=== PATIENT | male | born 1940 | race Caucasian/White ===

== ENCOUNTER 2023-11-13 14:03 | Outpatient (RCR) | payer OTHER, SELFPAY | END 2023-12-06 10:06 | disposition home or self-care (01) | LOC: MM 14:03 | PROVIDERS: PCP Internal Medicine; Visit Provider Internal Medicine | DX: Z51.81 Encounter for therapeutic drug level monitoring (principal); Z79.01 Long term (current) use of anticoagulants; I48.0 Paroxysmal atrial fibrillation | CPT/HCPCS: 85610; G0463 ==

== ENCOUNTER 2023-12-09 01:35 | Outpatient (RCR) | payer OTHER, SELFPAY | END 2024-01-06 23:42 | disposition home or self-care (01) | LOC: MM 01:35 | PROVIDERS: PCP Internal Medicine; Visit Provider Internal Medicine | DX: Z51.81 Encounter for therapeutic drug level monitoring (principal); Z79.01 Long term (current) use of anticoagulants; I48.0 Paroxysmal atrial fibrillation | CPT/HCPCS: 85610; G0463 ==

== ENCOUNTER 2024-01-07 02:40 | Outpatient (RCR) | payer OTHER, SELFPAY | END 2024-02-06 23:40 | disposition home or self-care (01) | LOC: MM 02:40 | PROVIDERS: PCP Internal Medicine; Visit Provider Internal Medicine | DX: Z51.81 Encounter for therapeutic drug level monitoring (principal); Z79.01 Long term (current) use of anticoagulants; I48.0 Paroxysmal atrial fibrillation | CPT/HCPCS: 85610; G0463 ==

== ENCOUNTER 2024-02-07 12:50 | Outpatient (RCR) | payer OTHER, SELFPAY | END 2024-03-07 23:59 | disposition home or self-care (01) | LOC: MM 12:50 | PROVIDERS: PCP Internal Medicine; Visit Provider Internal Medicine | DX: Z51.81 Encounter for therapeutic drug level monitoring (principal); Z79.01 Long term (current) use of anticoagulants; I48.0 Paroxysmal atrial fibrillation | CPT/HCPCS: 85610; G0463 ==

== ENCOUNTER 2024-03-09 05:14 | Outpatient (RCR) | payer OTHER, SELFPAY | END 2024-04-07 09:19 | disposition home or self-care (01) | LOC: MM 05:14 | PROVIDERS: PCP Internal Medicine; Visit Provider Internal Medicine | DX: Z51.81 Encounter for therapeutic drug level monitoring (principal); Z79.01 Long term (current) use of anticoagulants; I48.0 Paroxysmal atrial fibrillation | CPT/HCPCS: 85610; G0463 ==

== ENCOUNTER 2024-04-09 01:07 | Outpatient (RCR) | payer OTHER, SELFPAY | END 2024-05-08 14:37 | disposition home or self-care (01) | LOC: MM 01:07 | PROVIDERS: PCP Internal Medicine; Visit Provider Internal Medicine | DX: Z51.81 Encounter for therapeutic drug level monitoring (principal); Z79.01 Long term (current) use of anticoagulants; I48.0 Paroxysmal atrial fibrillation | CPT/HCPCS: 85610; G0463 ==

== ENCOUNTER 2024-05-11 00:41 | Outpatient (RCR) | payer OTHER, SELFPAY | END 2024-06-05 10:26 | disposition home or self-care (01) | LOC: MM 00:41 | PROVIDERS: PCP Internal Medicine; Visit Provider Internal Medicine | DX: Z51.81 Encounter for therapeutic drug level monitoring (principal); Z79.01 Long term (current) use of anticoagulants; I48.0 Paroxysmal atrial fibrillation | CPT/HCPCS: 85610; G0463 ==

== ENCOUNTER 2024-06-06 07:11 | Outpatient (RCR) | payer OTHER, SELFPAY | END 2024-07-03 10:04 | disposition home or self-care (01) | LOC: MM 07:11 | PROVIDERS: PCP Internal Medicine; Visit Provider Internal Medicine | DX: Z51.81 Encounter for therapeutic drug level monitoring (principal); Z79.01 Long term (current) use of anticoagulants; I48.0 Paroxysmal atrial fibrillation ==

== ENCOUNTER 2024-07-07 05:25 | Outpatient (RCR) | payer OTHER, SELFPAY | END 2024-08-05 15:37 | disposition home or self-care (01) | LOC: MM 05:25 | PROVIDERS: PCP Internal Medicine; Visit Provider Internal Medicine | DX: Z51.81 Encounter for therapeutic drug level monitoring (principal); Z79.01 Long term (current) use of anticoagulants; I48.91 Unspecified atrial fibrillation | CPT/HCPCS: 85610; G0463 ==

== ENCOUNTER 2024-08-06 04:46 | Outpatient (RCR) | payer OTHER, SELFPAY | END 2024-09-04 15:46 | disposition home or self-care (01) | LOC: MM 04:46 | PROVIDERS: PCP Internal Medicine; Visit Provider Internal Medicine | DX: Z51.81 Encounter for therapeutic drug level monitoring (principal); Z79.01 Long term (current) use of anticoagulants; I48.0 Paroxysmal atrial fibrillation | CPT/HCPCS: 85610; G0463 ==

== ENCOUNTER 2024-09-06 08:15 | Outpatient (RCR) | payer OTHER, SELFPAY | END 2024-10-01 15:01 | disposition home or self-care (01) | LOC: MM 08:15 | PROVIDERS: PCP Internal Medicine; Visit Provider Internal Medicine | DX: Z51.81 Encounter for therapeutic drug level monitoring (principal); Z79.01 Long term (current) use of anticoagulants; I48.91 Unspecified atrial fibrillation | CPT/HCPCS: 85610; G0463 ==

== ENCOUNTER 2024-10-06 02:31 | Outpatient (RCR) | payer OTHER, SELFPAY | END 2024-11-05 16:57 | disposition home or self-care (01) | LOC: MM 02:31 | PROVIDERS: PCP Internal Medicine; Visit Provider Internal Medicine | DX: Z51.81 Encounter for therapeutic drug level monitoring (principal); Z79.01 Long term (current) use of anticoagulants; I48.91 Unspecified atrial fibrillation | CPT/HCPCS: 85610; G0463 ==

== ENCOUNTER 2024-11-06 00:20 | Outpatient (RCR) | payer OTHER, SELFPAY | END 2024-12-03 13:15 | disposition home or self-care (01) | LOC: MM 00:20 | PROVIDERS: PCP Internal Medicine; Visit Provider Internal Medicine | DX: Z51.81 Encounter for therapeutic drug level monitoring (principal); Z79.01 Long term (current) use of anticoagulants; I48.91 Unspecified atrial fibrillation ==

== ENCOUNTER 2024-11-13 15:07 | Emergency (ER) | payer OTHER, SELFPAY ==
[2024-11-13 15:15] VITALS: BP 171/77; PULSE 56; TEMP 37.1; O2SAT 98; BMI 34.7
--- OUTSIDE RECORDS SUMMARY | 2024-11-13 15:15 | XMS_ITS | Encounter Summary ---
Author Organization [facility] Address [address] [place] [address] Phone Care Team Providers Care Want Ad Supervisor Name Role Phone Eugene Devine DO Primary Care Provider [phone] Encounter Details Date Type Department Care Team (Late st Contact Info) Description 01/12/2020 Orders Only [facility] [address] [place] [address] Conversion, Onbase Social History Tobacco Use Types Packs/Day Years Used Date Smoking Tobacco: Never Assessed Sex and Gender Information Value Date Recorded Sex Assigned at Not on file Legal Sex Male 4:30 PM EST Gender Identity Not on file Sexual Orientation Not on file documented as of this encounter Plan of Treatment Upcoming Encounters Date Type Department Care Team (Late st Contact Info) Description 03/18/2025 11:10 AM EST Office Visit [place] [address] [place] [address] Moshe Hernandez MD [address], [address] [place] [address] Scheduled Orders Name Type Priority Associated Diagnoses Orde r Schedule OUTSIDE LAB SCAN Lab Ordered: 01/12/2020 documented as of this encounter Visit Diagnoses Not on filedocumented in this encounter Care Teams Want Ad Supervisor Relationship Specialty Start Date End Date Eugene Devine DO [address] [place] [address] PCP - General 01/06/20 documented as of this encounter
--- OUTSIDE RECORDS SUMMARY | 2024-11-13 15:15 | XMS_ITS | Encounter Summary ---
Author Organization [facility] Address [address] [place] [address] Phone Care Team Providers Care Seismograph Shooter Name Role Phone Eugene Devine DO Primary Care Provider [phone] Encounter Details Date Type Department Care Team (Late st Contact Info) Description 09/11/2021 Orders Only [facility] [address] [place] [address] Conversion, Onbase Social History Tobacco Use Types [...] Description 03/18/2025 11:10 AM EST Office Visit [place] [address] [place] [address] Moshe Hernandez MD [address] [facility] [address], [address] [place] [address] Scheduled Orders Name Type Priority Associated Diagnoses Orde r Schedule OUTSIDE LAB SCAN Lab Ordered: 09/11/2021 documented as of this encounter Visit Diagnoses Not on filedocumented in this encounter Care Teams Seismograph Shooter Relationship Specialty Start Date End Date Eugene Devine DO [address] [place] [address] PCP - General 01/06/20 documented as of this encounter
--- OUTSIDE RECORDS SUMMARY | 2024-11-13 15:15 | XMS_ITS | Clinical Summary ---
Author Organization [facility] Address [address] [place] [address] Care Team Providers Care Communication Center Coordinator Name Role Phone Arpan Cardoso MD Unavailable [phone] Eugene Devine DO Unavailable [phone] Eugene Devine DO Primary Care Provider [phone] Allergies Active Allergy Reactions Criticality Noted Date Comments Apixaban Headache Low 09/06/2022 Ticagrelor Shortness of breath High 05/01/2023 Medications famotidine (Pepcid) 20 MG tablet Take 20 mg by mouth Daily as needed. Active Cholecalciferol (Vitamin D3) 125 MCG (5000 UT) chewable tablet 1 (one) time each day at the same time. Active latanoprost (Xalatan) 0.005 % ophthalmic solution 1 (one) time each day at the same time. Active nitroglycerin (Nitrostat) 0.4 MG SL tablet as directed Sublingual Active timolol (Timoptic) 0.5 % ophthalmic solution 1 (one) time each day at the same time. Active zinc 100 MG tablet 1 (one) time each day at the same time. Active warfarin (Coumadin) 5 MG tablet Take 5 mg by mouth 1 (one) time each day Take as directed per After Visit Summary. Active furosemide (Lasix) 20 MG tabletIndications: Venous insufficiency,Urin e retention Take 1 tablet (20 mg) by mouth Daily as needed (As needed every AM PRN edema) One tab every AM daily PRN edema 60 tablet 1 03/20/20 025 Active Additional Information Patient not taking.Reported on 10/01/2024 amLODIPine (Norvasc) 10 MG tabletIndications: Essential hypertension Take 1 tablet (10 mg) by mouth Daily 90 tablet 2 06/23/19 25 Active indapamide (Lozol) 1.25 MG tabletIndications: Essential hypertension Take 1 tablet (1.25 mg) by mouth in the morning. 90 tablet 2 06/23/19 25 026 Active ezetimibe (Zetia) 10 MG tabletIndications: Mixed hyperlipidemia Take 1 tablet by mouth once daily 90 tablet 3 07/18/19 25 Active pravastatin (Pravachol) 80 MG tabletIndications: Mixed hyperlipidemia Take 1 tablet (80 mg) by mouth at bedtime 90 tablet 3 08/04/19 25 Active valsartan (Diovan) 160 MG tabletIndications: Essential hypertension Take 1 tablet (160 mg) by mouth Daily 90 tablet 3 09/10/19 25 Active traZODone (Desyrel) 50 MG tabletIndications: Insomnia, unspecified type TAKE 1 TABLET BY MOUTH ONCE DAILY NEEDED AT BEDTIME 90 tablet 3 09/10/19 25 Active Active Problems Problem Noted Date Diagnosed Date Type 2 diabetes mellitus wit h stage 3a chronic kidney disease, without long-term current use of insulin 12/10/2023 Former smoker 06/21/2023 Lumbar disc disease 09/10/2022 Facet arthritis, degenerative, cervical spine Obesity, Class I, BMI 30.0-34.9 (see actual BMI) 09/06/2022 Cervical spondylosis without myelopathy 02/24/20 21 Insomnia 09/14/2020 Atrial fibrillation 01/12/2020 Stented coronary artery 01/12/2020 Coronary artery disease invo lving akhiok coronary artery of akhiok heart without angina pectoris 12/29/2019 Class 1 obesity 09/01/2019 Asymmetrical sensorineural hearing loss 11/04/19 19 Solitary kidney, acquired 03/21/2016 IFG (impaired fasting glucose) 11/30/2015 Chronic kidney disease, stage 3a 07/29/2015 Essential hypertension 07/07/2015 Assessment & Plan (09/06/2022 3:58 PM EDT): Has appt in 7 week, will re ck bp then watch - 6 Mixed hyperlipidemia 07/07/2015 History of renal cell carcinoma 07/07/2015 Resolved Problems Problem Noted Date Diagnosed Date Resolved Date Bradycardia by electrocardiogram 05/01/2023 10/16/2023 Echocardiogram abnormal 05/01/2023 07/ History of non-ST elevation myocardial infarction (NSTEMI) 05/01/2023 10/16/2023 History of PTCA 05/01/2023 10/16/2023 Medicare annual wellness visit, subsequent 04/16/2023 04/16/2023 ACP (advance care planning) 04/16/2023 04/16/2023 Intractable headache due to drug 12/17/2022 04/16/2023 Encounter for medication management 12/17/2022 04/16/2023 Morbid obesity 09/13/2022 12/17/2022 Sinus infection 09/10/2022 12/17/2022 Type 2 diabetes mellitus wit h other skin ulcer 09/10/2022 12/17/2022 Cough 09/10/2022 12/17/2022 Actinic keratosis 09/10/2022 09/10/2022 Aortic stenosis 09/06/2022 04/16/2023 Concentric left ventricular hypertrophy 09/06/2022 10/16/2023 Diabetes mellitus 09/06/2022 12/17/2022 Facet arthritis of lumbosacral region 09/06/2022 04/16/2023 History of kidney removal 09/06/2022 Vasovagal episode 09/06/2022 04/16/2023 Assessment & Plan (09/06/2022 3:57 PM EDT): He had n& v in early am, then, weak and dizzy for awhile. No nysatgmus or reproducible s&s now. No focal signs. 162/80. hR 58-60 was in yard long hrs yesterday . Prob VV episode stable now. [Plan to re ck bp in am at home and call if not improved Chronic rhinitis 09/22/2020 09/10/2022 ST elevation (STEMI) myocard ial infarction involving left anterior descending coronary artery 12/29/2019 09/10/2022 Atherosclerosis of coronary artery without angina pectoris 12/29/2019 10/16/2023 Skin ulcer due to diabetes mellitus 09/01/2019 09/10/2022 Sensorineural hearing loss, unilateral, right ear, with unrestricted hearing on the contralateral side 11/12/2018 10/16/2023 Chronic maxillary sinusitis 05/14/2017 09/10/2022 Chronic ethmoidal sinusitis 05/22/2016 09/10/2022 Encounters Date Type Department Care Team Description 10/01/2024 1:45 PM EDT Office Visit [facility] [address] [place] [address] Eugene Devine DO Coronary artery disease involving akhiok coronary artery of akhi[place] heart without angina pectoris (Primary Dx); Type 2 diabetes mellitus with stage 3a chronic kidney disease, without long-term current use of insulin (HCC); Chronic kidney disease, stage 3a (CMS-HCC); Mixed hyperlipidemia ; Essential hypertension ; Medicare annual wellness visit, subsequent 10/01/2024 Travel 09/09/2024 Refill [facility] [address] [place] [address] Funmilayo Hoyos LPN Essential hypertension ; Insomnia, unspecified type from Last 3 Months Immunizations Immunization Administration Dates Next Due ABRYSVO - Respiratory syncyt ial virus (RSV), vaccine, bivalent, protein subunit RSV prefusion F, diluent reconstituted, 0.5 mL, PF 03/04/2023 Influenza, High Dose Seasona l, Preservative Free 01/08/2022,12/30/2020 Influenza, Seasonal, Quadriv alent, Adjuvanted 02/14/2023 Influenza, injectable, quadr ivalent, preservative free 12/25/2016 Influenza, trivalent, adjuvanted 024,12/18/2019,02/25/2019,02/25 Pneumococcal Conjugate PCV 13 01/04/2018, 015,11/24/2014 Pneumococcal Polysaccharide PPSV23 04/08/2009 Zoster, Recombinant 10/01/2019,08/26/2019,2019 Family History Medical History Relation Name Comments Cancer Father Parkinsonism Mother Bone cancer Sibling Kidney disease Sibling abnormal pap smear Sibling Relation Name Status Comments Brother 3 brothers Daughter Alive 3 daughters, he althy Father Mother Sibling Alive Sister 1 sister Social History Tobacco Use Types Packs/Day Years Used Date Smoking Tobacco: Former Cigarettes 0 04/08/1962 - 04/08/1968 Passive Smoke Exposure: Past Smokeless Tobacco: Never Tobacco Cessation:Counseling Given: Not Answered Comments:>10 years since last smoked Alcohol Use Standard Drinks/Week Comments Not Currently 0 (1 standard drink = 0.6 oz pure alcohol) Caffeine intake: 1-2 cups per day coffee AUDIT-C Answer Date Recorded Q1: How often do you have a drink containing alcohol? Never 11/06/2023 Q2: How many drinks containi ng alcohol do you have on a typical day when you are drinking? Patient does not drink Q3: How often do you have si x or more drinks on one occasion? Never 11/06/2023 PHQ-2 Answer Date Recorded Patient Health Questionnaire-2 Score 0 10/01/2024 Sex and Gender Information Value Date Recorded Sex Assigned at Not on file Legal Sex Male 6:50 PM EDT Gender Identity Not on file Sexual Orientation Not on file Last Filed Vital Signs Vital Sign Reading Time Taken Comments Blood Pressure 130/80 03/20/2024 11:36 AM EST Pulse 57 10/01/2024 1:59 PM EDT Temperature - - Respiratory Rate - - Oxygen Saturation 97% 10/01/2024 1:59 PM EDT Inhaled Oxygen Concentration - - Weight 98.4 kg (217 lb) 10/01/2024 1:59 PM EDT Height 165.1 cm (5' 5 ) 10/01/2024 1:59 PM EDT Body Mass Index 36.11 10/01/2024 1:59 PM EDT Plan of Treatment Upcoming Encounters Date Type Department Care Team (Late st Contact Info) Description 01/12/2025 1:30 PM EDT Office Visit [facility] [address] [place] [address] 02/11/2025 2:20 PM EST Office Visit [facility] [address] [place] [address] Ana Sharpe MD [address] [place] [address] Health Maintenance Due Date Last Done Comments Diabetes: Retinopathy Screening 1950 Diabetes: Hemoglobin A1C 12/12/2022 023, 03/12/2022, 03/13/2021, Additional history exists Influenza Vaccine (#1) 2024 4, 02/14/2023, 01/08/2022, Additional history exists Diabetes: Urine Protein Screening 09/24/2025 09/24/2024, 04/15/2023, 09/11/2022, Additional history exists Medicare Annual Wellness (AWV) 10/01/2025 10/01/2024 Pneumococcal Vaccine: 65+ Years Completed 01/04/2018, 11/25/2014, 11/24/2014, Additional history exists Procedures Procedure Name Priority Date/Time Associated Diagnosis Comments MICROALBUMIN / CREATININE URINE RATIO Routine 09/24/2024 10:19 AM EDT Essential (primary) hypertension Chronic kidney disease, stage 3a (CMS-HCC) Medication management LIPID PANEL Routine 09/24/2024 10:19 AM EDT Essential (primary) hypertension Chronic kidney disease, stage 3a (CMS-HCC) Mixed hyperlipidemia Medication management TSH Routine 09/24/2024 10:19 AM EDT Essential (primary) hypertension Chronic kidney disease, stage 3a (CMS-HCC) Medication management COMPREHENSIVE METABOLIC PANEL Routine 09/24/2024 10:19 AM EDT Essential (primary) hypertension Chronic kidney disease, stage 3a (CMS-HCC) Medication management CBC (INCLUDES DIFF/PLT) Routine 09/24/2024 10:19 AM EDT Essential (primary) hypertension Chronic kidney disease, stage 3a (CMS-HCC) Medication management HEMOGLOBIN A1C Routine 09/11/2022 8:37 AM EDT from Last 3 Months or Most Recently Relevant to Health Maintenance Results * Microalbumin / creatinine urine ratio (09/24/2024 10:19 AM EDT) Creat Ur 89.6 Not Estab. mg/dL [facility] Albumin Ur 5.1 Not Estab. ug/mL [facility] Alb/Creat Ratio Urine 6 0 - 29 mg/g creat [facility] Comment: Normal: 0 - 29 Moderately increased: 30 - 300 Severely increased: >300 Urine Urine specimen obtained by clean catch procedure / Unknown 09/24/2024 10:19 AM EDT 09/24/2024 Narrative [facility] - 09/25/2024 10:07 AM EDT Performed at: 02 - [facility] [id number] Nail Mill Worker: Jeferson Fowler PhD, Phone: [phone] Eugene Devine DO LAB URINE ORDERABLES Final R esult [facility] * CBC and differential (09/24/2024 10:19 AM EDT) WBC 6.8 3.4 - 10.8 x10E3/uL [facility] RBC 5.05 4.14 - 5.80 x10E6/uL [facility] Hgb 15.7 13.0 - 17.7 g/dL [facility] Hct 46.8 37.5 - 51.0 % [facility] MCV 93 79 - 97 fL [facility] MCH 31.1 26.6 - 33.0 pg [facility] MCHC 33.5 31.5 - 35.7 g/dL [facility] RDW 13.2 11.6 - 15.4 % [facility] Platelets 182 150 - 450 x10E3/uL [facility] Neutrophils 71 Not Estab. % [facility] Lymphs 17 Not Estab. % [facility] Monocytes 8 Not Estab. % [facility] Eos 3 Not Estab. % [facility] Basos 1 Not Estab. % [facility] Neutrophils Abs 4.8 1.4 - 7.0 x10E3/uL [facility] Lymphs Abs 1.2 0.7 - 3.1 x10E3/uL [facility] MonocytesAbs 0.5 0.1 - 0.9 x10E3/uL [facility] Eos Abs 0.2 0.0 - 0.4 x10E3/uL [facility] Baso Abs 0.1 0.0 - 0.2 x10E3/uL [facility] Immature Granulocytes 0 Not Estab. % [facility] Immature Grans Abs 0.0 0.0 - 0.1 x10E3/uL [facility] Blood Venous blood specimen / Unknown 09/24/2024 10:19 AM EDT 09/24/2024 Narrative [facility] - 09/25/2024 10:07 AM EDT Performed at: [address] [place] [address], [address] [place] [id number] Nail Mill Worker: Kellie Guillen MD, Phone: [phone] Eugene Devine DO LAB BLOOD ORDERABLES Final R esult Performing Organization Address City/[facility]/ZIP Co de Phone Number [facility] * TSH (09/24/2024 10:19 AM EDT) TSH 3.450 0.450 - 4.500 uIU/mL [facility] Blood Venous blood specimen / Unknown 09/24/2024 10:19 AM EDT 09/24/2024 Narrative [facility] - 09/25/2024 10:07 AM EDT Performed at: [address] [place] [address], [address] [place] [id number] Nail Mill Worker: Kellie Guillen MD, Phone: [phone] Eugene Devine DO LAB BLOOD ORDERABLES Final R esult [facility] * (ABNORMAL) Lipid panel (09/24/2024 10:19 AM EDT) Cholesterol, Total 160 100 - 199 mg/dL [facility] Triglycerides 159(H) 0 - 149 mg/dL [facility] HDL Cholesterol 45 >39 mg/dL [facility] VLDL Cholesterol Ihsan 28 5 - 40 mg/dL [facility] LDL Chol Calc (NIH) 87 0 - 99 mg/dL [facility] Blood Venous blood specimen / Unknown 09/24/2024 10:19 AM EDT 09/24/2024 Narrative [facility] - 09/25/2024 10:07 AM EDT Performed at: 02 - [address] [id number] Nail Mill Worker: Jeferson Fowler PhD, Phone: [phone] Eugene Devine DO LAB BLOOD ORDERABLES Final R esult [facility] * (ABNORMAL) Comprehensive metabolic panel (09/24/2024 10:19 AM EDT) [facility] Glucose 106(H) 70 - 99 mg/dL [facility] BUN 22 8 - 27 mg/dL [facility] Creat 1.35(H) 0.76 - 1.27 mg/dL [facility] EGFR 51(L) >59 mL/min/1.7 3 [facility] BUN/Creat Ratio 16 10 - 24 [facility] Sodium 142 134 - 144 mmol/L [facility] Potassium 4.7 3.5 - 5.2 mmol/L [facility] Chloride 101 96 - 106 mmol/L [facility] Carbon Dioxide 28 20 - 29 mmol/L [facility] Calcium 9.9 8.6 - 10.2 mg/dL [facility] Protein Total 7.0 6.0 - 8.5 g/dL [facility] Albumin 4.8(H) 3.7 - 4.7 g/dL [facility] Globulin Total 2.2 1.5 - 4.5 g/dL [facility] Bili Total 0.5 0.0 - 1.2 mg/dL [facility] Alk Phosphatase 37(L) 44 - 121 IU/L [facility] AST 29 15 - 51 IU/L [facility] ALT 43 0 - 50 IU/L [facility] Blood Venous blood specimen / Unknown 09/24/2024 10:19 AM EDT 09/24/2024 Narrative [facility] - 09/25/2024 10:07 AM EDT Performed at: 01 - [facility] [address] , [address], [place], [place] [id number] Nail Mill Worker: Kellie Guillen MD, Phone: [phone] Eugene Devine DO LAB BLOOD ORDERABLES Final R esult [facility] * Hemoglobin A1c (09/11/2022 8:37 AM EDT) Hemoglobin A1C 5.3 <5.7 % of total Hgb [facility] Comment: For the purpose of screening for the presence of diabetes: <5.7% Consistent with the absence of diabetes 5.7-6.4% Consistent with increased risk for diabetes (prediabetes) > or =6.5% Consistent with diabetes This assay result is consistent with a decreased risk of diabetes. Currently, no consensus exists regarding use of hemoglobin A1c for diagnosis of diabetes in children. According to [place] Diabetes Association (ADA) guidelines, hemoglobin A1c <7.0% represents optimal control in non- diabetic patients. Different metrics may apply to specific patient populations. Standards of Medical Care in Diabetes(ADA). 09/11/2022 8:37 AM EDT 09/11/2022 3:00 PM EDT Narrative [facility] - 09/12/2022 10:08 AM EDT FASTING:YES FASTING: YES Resulting Agency Comment Performing Organization Information Site ID: [id number] Name: [employer] [facility] Address: [address] [place] [address], [address] [place] [phone] Director: Shailesh Khan MD Eugene Devine DO LAB BLOOD ORDERABLES Final R esult Performing Organization Address City/[facility] Co de Phone Number [facility] from Last 3 Months or Most Recently Relevant to Health Maintenance Insurance [employer] Advance Directives * Full Code (Latest Code Status on File) Date Activated Date Inactivated Comments 04/16/2023 4:14 PM Care Teams Communication Center Coordinator Relationship Specialty Start Date End Date Eugene Devine DO [address] [place] [address] PCP - Devoted 04/08/20 Eugene Devine DO [address] [place] [address] PCP - General Internal Medicine 10/09/23 Arpan Cardoso MD [address] [place] [id number] Referring Physician Ophthalmology 04/16/23
--- OUTSIDE RECORDS SUMMARY | 2024-11-13 15:15 | XMS_ITS | Encounter Summary ---
Author Organization [facility] Address [address] [place] [address] Phone Care Team Providers Care Financial Services Sales Representative Name Role Phone Eugene Devine DO Primary Care Provider [phone] Encounter Details Date Type Department Care Team (Late st Contact Info) Description 11/29/2020 Orders Only [facility] [address] [place] [address] Conversion, Onbase Social History Tobacco Use Types [...] Description 03/18/2025 11:10 AM EST Office Visit [place] [address] [place] [address] Moshe Hernandez MD [address] [facility] [address], [address] [place] [address] Scheduled Orders Name Type Priority Associated Diagnoses Orde r Schedule OUTSIDE LAB SCAN Lab Ordered: 11/29/2020 documented as of this encounter Visit Diagnoses Not on filedocumented in this encounter Care Teams Financial Services Sales Representative Relationship Specialty Start Date End Date Eugene Devine DO [address] [place] [address] PCP - General 01/06/20 documented as of this encounter
--- OUTSIDE RECORDS SUMMARY | 2024-11-13 15:15 | XMS_ITS | Encounter Summary ---
Author Organization [facility] Address [address] [place] [address] Phone Care Team Providers Care Medical Record Librarians Teacher Name Role Phone Eugene Devine DO Primary Care Provider [phone] Encounter Details Date Type Department Care Team (Late st Contact Info) Description 11/30/2022 Scanned Document [facility] [address] [place] [address] Conversion, Onbase Social History Tobacco Use Types [...] Description 03/18/2025 11:10 AM EST Office Visit [place] [address] [place] [address] Moshe Hernandez MD [address] [facility] [address] [place] [address] documented as of this encounter Visit Diagnoses Not on filedocumented in this encounter Care Teams Medical Record Librarians Teacher Relationship Specialty Start Date End Date Eugene Devine DO [address] [place] [address] PCP - General 01/06/20 documented as of this encounter
--- OUTSIDE RECORDS SUMMARY | 2024-11-13 15:15 | XMS_ITS | Encounter Summary ---
Author Organization [facility] Address [address] [facility] [place] [address] Care Team Providers Care Renal Medicine Physician Name Role Phone Eugene Devine DO Primary Care Provider + [phone] Arpan Cardoso MD Unavailable [phone] Eugene Devine DO Unavailable [phone] Eugene Devine DO Primary Care Provider + [phone] Encounter Details Date Type Department Care Team (Late st Contact Info) Description 06/04/2023 Orders Only [facility] [address] [facility] [address] [place] [address] A, Unknown Practice [address] [place], [place] [phone] Social History Tobacco Use Types Packs/Day Years Used Date Smoking Tobacco: Former Cigarettes 0 04/08/1962 - 04/08/1968 Passive Smoke Exposure: Past Smokeless Tobacco: Never Comments:>10 years since las t smoked Alcohol Use Standard Drinks/Week Comments Not Currently 0 (1 standard drink = 0.6 oz pure alcohol) Caffeine intake: 1-2 cups per day coffee AUDIT-C Answer Date Recorded Q1: How often do you have a drink containing alcohol? Never 04/16/2023 Q2: How many drinks containi ng alcohol do you have on a typical day when you are drinking? Patient does not drink Q3: How often do you have si x or more drinks on one occasion? Never 04/16/2023 PHQ-2 Answer Date Recorded Patient Health Questionnaire-2 Score 0 12/17/2022 Sex and Gender Information Value Date Recorded Sex Assigned at Not on file Legal Sex Male 6:50 PM EDT Gender Identity Not on file Sexual Orientation Not on file documented as of this encounter Plan of Treatment Upcoming Encounters Date Type Department Care Team (Late st Contact Info) Description 01/12/2025 1:30 PM EDT Office Visit [facility] [address] [place] [phone] 02/11/2025 2:20 PM EST Office Visit [facility] [address] [place] [phone] Ana Sharpe MD [address] [place] [address] documented as of this encounter Procedures Procedure Name Priority Date/Time Associated Diagnosis Comments SCANNED LABS Routine 04/09/2023 1:54 PM EST documented in this encounter Results * SCANNED LABS (04/09/2023 1:54 PM EST) us Unknown Practice A LAB CHG PERFORMABLES Final Re sult documented in this encounter Visit Diagnoses Not on filedocumented in this encounter Additional Health Concerns Assessment Noted Time PHQ-9 Depression Total Score: 0 04/16/19 3:00 PM EST documented as of this encounter Care Teams Renal Medicine Physician Relationship Specialty Start Date End Date Eugene Devine DO PCP - General Internal Medicine 09/12/22 10/08/23 Eugene Devine DO [address] [place] [address] PCP - Devoted 04/08/20 Eugene Devine DO [address] [place] [address] PCP - General Internal Medicine 10/09/23 Arpan Cardoso MD [address] [place], [place] [phone] Referring Physician Ophthalmology 04/16/23 documented as of this encounter
--- OUTSIDE RECORDS SUMMARY | 2024-11-13 15:15 | XMS_ITS | Encounter Summary ---
Author Organization [facility] Address [address] [place] [address] Phone Care Team Providers Care Tipple Boss Name Role Phone Eugene Devine DO Primary Care Provider [phone] Encounter Details Date Type Department Care Team (Late st Contact Info) Description 02/12/2024 Scanned Document [facility] [address] [place] [phone] Scanning, Generic Provider Social History Tobacco Use Types Packs/Day Years Used Date Smoking Tobacco: Former Cigarettes Smokeless Tobacco: Never Alcohol Use Standard Drinks/Week Comments Never 0 (1 standard drink = 0.6 oz pur e alcohol) Sex and Gender Information Value Date Recorded Sex Assigned at Not on file Legal Sex Male 4:30 PM EST Gender Identity Not on file Sexual Orientation Not on file documented as of this encounter Plan of Treatment Upcoming Encounters Date Type Department Care Team (Late st Contact Info) Description 03/18/2025 11:10 AM EST Office Visit [place] [address] [place] [address] Moshe Hernandez MD 703 [facility] 2, [address] [place] [address] documented as of this encounter Procedures Procedure Name Priority Date/Time Associated Diagnosis Comments OUTSIDE LAB SCAN 02/12/2024 documented in this encounter Results * OUTSIDE LAB SCAN (02/12/2024) Narrative 02/12/2024 Ordered by an unspecified provider. us Generic Provider Scanning OUTSIDE SCAN Final Result documented in this encounter Visit Diagnoses Not on filedocumented in this encounter Additional Health Concerns Assessment Noted Time A fall risk assessment has been complete d for the patient 06/21/2023 11:11 AM EDT documented as of this encounter Care Teams Tipple Boss Relationship Specialty Start Date End Date Eugene Devine DO [address] [place] [address] PCP - General 01/06/20 documented as of this encounter
--- OUTSIDE RECORDS SUMMARY | 2024-11-13 15:15 | XMS_ITS | Encounter Summary ---
Author Organization [facility] Address [address] [place] [address] Care Team Providers Care Equipment Sterilizer Name Role Phone Arpan Cardoso MD Unavailable [phone] Eugene Devine DO Unavailable [phone] Eugene Devine DO Primary Care Provider [phone] Reason for Visit * Reason Comments Med Refill Encounter Details Date Type Department Care Team (Late st Contact Info) Description 07/17/2024 Refill [facility] [address] [facility] [address] [place] [address] Corona Orozco, PAPER AND PRINTS RESTORER [address] [facility] 230 [place] [address] Mixed hyperlipidemia Social History Tobacco Use Types Packs/Day Years [...] 01/12/2025 1:30 PM EDT Office Visit [facility] [address] [place] [address] 02/11/2025 2:20 PM EST Office [facility] [address] [place] [address] Ana Sharpe MD [address] [facility] [facility] [address] [place] [address] documented as of this encounter Visit Diagnoses Diagnosis Mixed hyperlipidemia Mixed hyperlipidemia documented in this encounter Additional Health Concerns Assessment Noted Time PHQ-9 Depression Total Score: 0 04/16/19 24 3:00 PM EST documented as of this encounter Care Teams Equipment Sterilizer Relationship Specialty Start Date End Date Eugene Devine DO [address] [facility] 230 [place] [address] PCP - Devoted 04/08/20 Eugene Devine DO [address] [facility] 230 [place] [address] PCP - General Internal Medicine 10/09/23 Arpan Cardoso MD [address] [place] [address] Referring Physician Ophthalmology 04/16/23 documented as of this encounter
--- OUTSIDE RECORDS SUMMARY | 2024-11-13 15:15 | XMS_ITS | Encounter Summary ---
Author Organization [facility] Address [address] [place] [address] Phone Care Team Providers Care Surface Grinding Machine Hand Name Role Phone Eugene Devine DO Primary Care Provider [phone] Encounter Details Date Type Department Care Team (Late st Contact Info) Description 09/12/2020 Orders Only [facility] [address] [place] [address] Conversion, Onbase Social History Tobacco Use Types [...] Description 03/18/2025 11:10 AM EST Office Visit [place] [address] [place] [address] Moshe Hernandez MD 703 [facility] 2, [address] [place] [address] Scheduled Orders Name Type Priority Associated Diagnoses Orde r Schedule OUTSIDE LAB SCAN Lab Ordered: 09/12/2020 documented as of this encounter Visit Diagnoses Not on filedocumented in this encounter Care Teams Surface Grinding Machine Hand Relationship Specialty Start Date End Date Eugene Devine DO [address] [place] [address] PCP - General 01/06/20 documented as of this encounter
--- OUTSIDE RECORDS SUMMARY | 2024-11-13 15:15 | XMS_ITS | Encounter Summary ---
Author Organization [facility] Address [address] [place] [address] Phone Care Team Providers Care Magistrate Name Role Phone Eugene Devine DO Primary Care Provider [phone] Encounter Details Date Type Department Care Team (Late st Contact Info) Description 09/09/2020 Orders Only [facility] [address] [place] [address] Conversion, Onbase Social History Tobacco Use Types [...] Description 03/18/2025 11:10 AM EST Office Visit [place] [address] [place] [address] Moshe Hernandez MD 703 [facility] 2, [address] [place] [address] Scheduled Orders Name Type Priority Associated Diagnoses Orde r Schedule OUTSIDE LAB SCAN Lab Ordered: 09/09/2020 documented as of this encounter Visit Diagnoses Not on filedocumented in this encounter Care Teams Magistrate Relationship Specialty Start Date End Date Eugene Devine DO [address] [place] [address] PCP - General 01/06/20 documented as of this encounter
--- OUTSIDE RECORDS SUMMARY | 2024-11-13 15:15 | XMS_ITS | Encounter Summary ---
Author Organization [facility] Address [address] [facility] [place] [address] Care Team Providers Care Surgical Aides Teacher Name Role Phone Eugene Devine DO Primary Care Provider + [phone] Arpan Cardoso MD Unavailable [phone] Eugene Devine DO Unavailable [phone] Eugene Devine DO Primary Care Provider + [phone] Encounter Details Date Type Department Care Team (Late st Contact Info) Description 01/15/2023 Orders Only [facility] [address] [facility] [address] [place] [address] A, Unknown Practice [address] [place], [place] [id number] Social History Tobacco Use Types Packs/Day Years [...] often do you have a drink containing alc ohol? Never 09/06/2022 Average Number of Drinks Not on file 023 Frequency of Binge Drinking Not on file 04/2022 PHQ-2 Answer Date Recorded Patient Health Questionnaire-2 [...] [address] [place] [phone] 02/11/2025 2:20 PM EST Office Visit [facility] [address] [place] [address] Ana Sharpe MD [address] [place] [address] documented as of this encounter Procedures Procedure Name Priority Date/Time Associated Diagnosis Comments SCANNED LABS Routine 01/15/2023 3:47 PM EDT documented in this encounter Results * SCANNED LABS (01/15/2023 3:47 PM EDT) us Unknown Practice A LAB CHG PERFORMABLES Final Re sult documented in this encounter Visit Diagnoses Not on filedocumented in this encounter Care Teams Surgical Aides Teacher Relationship Specialty Start Date End Date Eugene Devine DO PCP - General Internal Medicine 09/12/22 10/08/23 Eugene Devine DO [address] [place] [address] PCP - Devoted 04/08/20 Eugene Devine DO [address] [place] [address] PCP - General Internal Medicine 10/09/23 Arpan Cardoso MD [address] [place] [address] [place] [address] Referring Physician Ophthalmology 04/16/23 documented as of this encounter
--- OUTSIDE RECORDS SUMMARY | 2024-11-13 15:15 | XMS_ITS | Encounter Summary ---
Author Organization [facility] Address [address] [place] [address] Phone Care Team Providers Care Cloth Finishing Range Tender Name Role Phone Eugene Devine DO Primary Care Provider Encounter Details Date Type Department Care Team (Late st Contact Info) Description 12/03/2023 Scanned Document [facility] [address] [place] [phone] Scanning, Generic Provider Social History Tobacco Use [...] Description 03/18/2025 11:10 AM EST Office Visit [place] [address] [place] [address] Moshe Hernandez MD 703 [facility] 2, [address] [place] [address] documented as of this encounter Procedures Procedure Name Priority Date/Time Associated Diagnosis Comments OUTSIDE LAB SCAN 12/03/2023 documented in this encounter Results * OUTSIDE LAB SCAN (12/03/2023) Narrative 12/03/2023 Ordered by an unspecified provider. us Generic Provider Scanning OUTSIDE SCAN Final Result documented in this encounter Visit Diagnoses Not on filedocumented in this encounter Additional Health Concerns Assessment Noted Time A fall risk assessment has been complete d for the patient 06/21/2023 11:11 AM EDT documented as of this encounter Care Teams Cloth Finishing Range Tender Relationship Specialty Start Date End Date Eugene Devine DO [address] [place] [address] PCP - General 01/06/20 documented as of this encounter
--- OUTSIDE RECORDS SUMMARY | 2024-11-13 15:15 | XMS_ITS | Encounter Summary ---
Author Organization [facility] Address [address] [place] [address] Phone Care Team Providers Care Bundle Sorter Name Role Phone Eugene eDvine DO Primary Care Provider [phone] Encounter Details Date Type Department Care Team (Late st Contact Info) Description 03/05/2023 Scanned Document [facility] [address] [place] [phone] Scanning, Generic Provider Social History Tobacco Use [...] Description 03/18/2025 11:10 AM EST Office Visit [place] [address] [place] [phone] Moshe Hernandez MD [address] [facility] [address], [address] [place] [address] documented as of this encounter Visit Diagnoses Not on filedocumented in this encounter Care Teams Bundle Sorter Relationship Specialty Start Date End Date Eugene Devine DO [address] [place] [address] PCP - General 01/06/20 documented as of this encounter
--- OUTSIDE RECORDS SUMMARY | 2024-11-13 15:15 | XMS_ITS | Encounter Summary ---
Author Organization [facility] Address [address] [place] [address] Phone Care Team Providers Care Diet Kitchen Cook Name Role Phone Eugene Devine DO Primary Care Provider [phone] Encounter Details Date Type Department Care Team (Late st Contact Info) Description 02/24/2021 Orders Only [facility] [address] [place] [address] Conversion, Onbase Social History Tobacco Use Types [...] Description 03/18/2025 11:10 AM EST Office Visit [place] [address] [place] [address] Moshe Hernandez MD 703 [facility] 2, [address] [place] [address] Scheduled Orders Name Type Priority Associated Diagnoses Orde r Schedule OUTSIDE LAB SCAN Lab Ordered: 02/24/2021 documented as of this encounter Visit Diagnoses Not on filedocumented in this encounter Care Teams Diet Kitchen Cook Relationship Specialty Start Date End Date Eugene Devine DO [address] [place] [address] PCP - General 01/06/20 documented as of this encounter
--- OUTSIDE RECORDS SUMMARY | 2024-11-13 15:15 | XMS_ITS | Encounter Summary ---
Author Organization [facility] Address [address] [place] [address] Phone Care Team Providers Care Drying Room Operator Name Role Phone Eugene Devine DO Primary Care Provider [phone] Encounter Details Date Type Department Care Team (Late st Contact Info) Description 01/08/2024 Scanned Document [facility] [address] [place] [phone] Scanning, Generic Provider Social History Tobacco Use [...] on file Sexual Orientation Not on file COVID-19 Exposure Response Date Recorded In the last 10 days, have yo u been in contact with someone who was confirmed or suspected to have Coronavirus/COVID-19? No / Unsure 12/25/2023 9:07 AM EDT documented as of this encounter Plan of Treatment Upcoming Encounters Date Type Department Care Team (Late st Contact Info) Description 03/18/2025 11:10 AM EST Office Visit [facility] [address] [place] [address] Moshe Hernandez MD [address], [address] [place] [address] documented as of this encounter Procedures Procedure Name Priority Date/Time Associated Diagnosis Comments OUTSIDE LAB SCAN 01/08/2024 documented in this encounter Results * OUTSIDE LAB SCAN (01/08/2024) Narrative 01/08/2024 Ordered by an unspecified provider. us Generic Provider Scanning OUTSIDE SCAN Final Result documented in this encounter Visit Diagnoses Not on filedocumented in this encounter Additional Health Concerns Assessment Noted Time A fall risk assessment has been complete d for the patient 06/21/2023 11:11 AM EDT documented as of this encounter Care Teams Drying Room Operator Relationship Specialty Start Date End Date Eugene Devine DO [address] [place] [address] PCP - General 01/06/20 documented as of this encounter
--- OUTSIDE RECORDS SUMMARY | 2024-11-13 15:15 | XMS_ITS | Encounter Summary ---
Author Organization [facility] Address [address] [facility] [place] [address] Care Team Providers Care Dredge Or Barge Shore Hand Name Role Phone Eugene Devine DO Primary Care Provider + [phone] Arpan Cardoso MD Unavailable [phone] Eugene Devine DO Unavailable [phone] Eugene Devine DO Primary Care Provider + [phone] Encounter Details Date Type Department Care Team (Late st Contact Info) Description 02/26/2023 Orders Only [facility] [address] [facility] [address] [place] [address] A, Unknown Practice [address] [place], [place] [id number] Social History Tobacco Use Types Packs/Day Years [...] [address] [place] [address] 02/11/2025 2:20 PM EST Office Visit [facility] [address] [place] [address] Ana Sharpe MD [address] [place] [address] documented as of this encounter Procedures Procedure Name Priority Date/Time Associated Diagnosis Comments SCANNED LABS Routine 12/28/2022 2:34 PM EDT documented in this encounter Results * SCANNED LABS (12/28/2022 2:34 PM EDT) us Unknown Practice A LAB CHG PERFORMABLES Final Re sult documented in this encounter Visit Diagnoses Not on filedocumented in this encounter Care Teams Dredge Or Barge Shore Hand Relationship Specialty Start Date End Date Eugene Devine DO PCP - General Internal Medicine 09/12/22 10/08/23 Eugene Devine DO [address] [place] [address] PCP - Devoted 04/08/20 Eugene Devine DO [address] [place] [address] PCP - General Internal Medicine 10/09/23 Arpan Cardoso MD [address] [place] [address] [place] [address] Referring Physician Ophthalmology 04/16/23 documented as of this encounter
--- OUTSIDE RECORDS SUMMARY | 2024-11-13 15:15 | XMS_ITS | Encounter Summary ---
Author Organization [facility] Address [address] [place] [address] Phone Care Team Providers Care Rigger Up Name Role Phone Eugene Devine DO Primary Care Provider [phone] Encounter Details Date Type Department Care Team (Late st Contact Info) Description 06/02/2021 Orders Only [facility] [address] [place] [address] Conversion, Onbase Social History Tobacco Use Types [...] Description 03/18/2025 11:10 AM EST Office Visit [place] [address] [place] [address] Moshe Hernandez MD 703 [facility] 2, [address] [place] [address] Scheduled Orders Name Type Priority Associated Diagnoses Orde r Schedule OUTSIDE LAB SCAN Lab Ordered: 06/02/2021 documented as of this encounter Visit Diagnoses Not on filedocumented in this encounter Care Teams Rigger Up Relationship Specialty Start Date End Date Eugene Devine DO [address] [place] [address] PCP - General 01/06/20 documented as of this encounter
--- OUTSIDE RECORDS SUMMARY | 2024-11-13 15:15 | XMS_ITS | Encounter Summary ---
Author Organization [facility] Address [address] [facility] [place] [address] Care Team Providers Care Concentrator Operator Name Role Phone Eugene Devine DO Primary Care Provider + [phone] Arpan Cardoso MD Unavailable [phone] Eugene Devine DO Unavailable [phone] Eugene Devine DO Primary Care Provider + [phone] Encounter Details Date Type Department Care Team (Late st Contact Info) Description 01/14/2023 Orders Only [facility] [address] [facility] [address] [place] [address] A, Unknown Practice [address] [place], [place] [id number] Social History Tobacco Use Types Packs/Day Years [...] Description 01/12/2025 1:30 PM EDT Office Visit [facility] [place] [facility] [address] [place] [address] 02/11/2025 2:20 PM EST Office Visit [facility] [address] [place] [address] Ana Sharpe MD [address] [place] [address] documented as of this encounter Procedures Procedure Name Priority Date/Time Associated Diagnosis Comments SCANNED LABS Routine 12/28/2022 8:47 AM EDT documented in this encounter Results * SCANNED LABS (12/28/2022 8:47 AM EDT) us Unknown Practice A LAB CHG PERFORMABLES Final Re sult documented in this encounter Visit Diagnoses Not on filedocumented in this encounter Care Teams Concentrator Operator Relationship Specialty Start Date End Date Eugene Devine DO PCP - General Internal Medicine 09/12/22 10/08/23 Eugene Devine DO [address] [place] [address] PCP - Devoted 04/08/20 Eugene Devine DO [address] [place] [address] PCP - General Internal Medicine 10/09/23 Arpan Cardoso MD [address] [place] [address] [place] [address] Referring Physician Ophthalmology 04/16/23 documented as of this encounter
--- OUTSIDE RECORDS SUMMARY | 2024-11-13 15:15 | XMS_ITS | Encounter Summary ---
Author Organization [facility] Address [address] [place] [address] Phone Care Team Providers Care Routing Equipment Tender Name Role Phone Eugene Devine DO Primary Care Provider Encounter Details Date Type Department Care Team (Late st Contact Info) Description 12/25/2019 Orders Only [facility] [address] [place] [address] Conversion, Onbase Social History Tobacco Use Types [...] Description 03/18/2025 11:10 AM EST Office Visit [place] [address] [place] [address] Moshe Hernandez MD 703 [facility] 2, [address] [place] [address] Scheduled Orders Name Type Priority Associated Diagnoses Orde r Schedule OUTSIDE LAB SCAN Lab Ordered: 12/25/2019 documented as of this encounter Visit Diagnoses Not on filedocumented in this encounter Care Teams Routing Equipment Tender Relationship Specialty Start Date End Date Eugene Devine DO [address] [place] [address] PCP - General 01/06/20 documented as of this encounter
--- OUTSIDE RECORDS SUMMARY | 2024-11-13 15:15 | XMS_ITS | Encounter Summary ---
Author Organization [facility] Address [address] [place] [address] Care Team Providers Care Gas Regulator Repairer Name Role Phone Arpan Cardoso MD Unavailable [phone] Eugene Devine DO Unavailable [phone] Eugene Devine DO Primary Care Provider [phone] Encounter Details Date Type Department Care Team (Late Contact Info) Description 07/02/2024 Telephone [facility] [address] [facility] [address] [place] [phone] Alycia Matias MA Social History Tobacco Use Types Packs/Day Years [...] [address] [place] [phone] 02/11/2025 2:20 PM EST Office Visit [facility] [place] [facility] [address] [place] [address] Ana Sharpe MD [address] [place] [address] documented as of this encounter Visit Diagnoses Not on filedocumented in this encounter Additional Health Concerns Assessment Noted Time PHQ-9 Depression Total Score: 0 04/16/19 24 3:00 PM EST documented as of this encounter Care Teams Gas Regulator Repairer Relationship Specialty Start Date End Date Eugene Devine DO [address] [place] [address] PCP - Devoted 04/08/20 Eugene Devine DO [address] [place] [address] PCP - General Internal Medicine 10/09/23 Arpan Cardoso MD [address] [place] [address] [address] Referring Physician Ophthalmology 04/16/23 documented as of this encounter
--- OUTSIDE RECORDS SUMMARY | 2024-11-13 15:15 | XMS_ITS | Encounter Summary ---
Author Organization [facility] Address [address] [place] [address] Phone Care Team Providers Care Equipment Maintenance Tech Name Role Phone Eugene Devine DO Primary Care Provider [phone] Encounter Details Date Type Department Care Team (Late st Contact Info) Description 12/26/2020 Orders Only [facility] [address] [place] [address] Conversion, Onbase Social History Tobacco Use Types [...] Description 03/18/2025 11:10 AM EST Office Visit [place] [address] [place] [address] Moshe Hernandez MD 703 [facility] 2, [address] [place] [address] Scheduled Orders Name Type Priority Associated Diagnoses Orde r Schedule OUTSIDE LAB SCAN Lab Ordered: 12/26/2020 documented as of this encounter Visit Diagnoses Not on filedocumented in this encounter Care Teams Equipment Maintenance Tech Relationship Specialty Start Date End Date Eugene Devine DO [address] [place] [address] PCP - General 01/06/20 documented as of this encounter
--- OUTSIDE RECORDS SUMMARY | 2024-11-13 15:15 | XMS_ITS | Encounter Summary ---
Author Organization [facility] Address [address] [place] [address] Care Team Providers Care Senior Android Software Engineer Name Role Phone Eugene Devine DO Primary Care Provider + [phone] Arpan Cardoso MD Unavailable [phone] Eugnee Devine DO Unavailable [phone] Eugene Devine DO Primary Care Provider + [phone] Encounter Details Date Type Department Care Team (Late st Contact Info) Description 12/28/2022 Orders Only [facility] [address] [place] [address] A, Unknown Practice [address] [place], [place] [id number] Social History Tobacco Use Types Packs/Day Years [...] [address] [place] [phone] 02/11/2025 2:20 PM EST Office Visit [facility] [address] [place] [address] Ana Sharpe MD [address] [place] [address] documented as of this encounter Procedures Procedure Name Priority Date/Time Associated Diagnosis Comments SCANNED LABS Routine 12/28/2022 2:00 PM EDT documented in this encounter Results * SCANNED LABS (12/28/2022 2:00 PM EDT) us Unknown Practice A LAB CHG PERFORMABLES Final Re sult documented in this encounter Visit Diagnoses Not on filedocumented in this encounter Care Teams Senior Android Software Engineer Relationship Specialty Start Date End Date Eugene Devine DO PCP - General Internal Medicine 09/12/22 10/08/23 Eugene Devine DO [address] [place] [address] PCP - Devoted 04/08/20 Eugene Devine DO [address] [place] [address] PCP - General Internal Medicine 10/09/23 Arpan Cardoso MD [address] [place] [address] [place] [address] Referring Physician Ophthalmology 04/16/23 documented as of this encounter
--- OUTSIDE RECORDS SUMMARY | 2024-11-13 15:15 | XMS_ITS | Encounter Summary ---
Author Organization [facility] Address [address] [place] [address] Phone Care Team Providers Care Secretary To The Vice President Name Role Phone Eugene Devine DO Primary Care Provider [phone] Encounter Details Date Type Department Care Team (Late st Contact Info) Description 04/10/2022 Orders Only [facility] [address] [place] [address] Conversion, Onbase Social History Tobacco Use Types [...] Description 03/18/2025 11:10 AM EST Office Visit [place] [address] [place] [address] Moshe Hernandez MD [address] [facility] 2, [address] [place] [address] Scheduled Orders Name Type Priority Associated Diagnoses Orde r Schedule OUTSIDE LAB SCAN Lab Ordered: 04/10/2022 documented as of this encounter Visit Diagnoses Not on filedocumented in this encounter Care Teams Secretary To The Vice President Relationship Specialty Start Date End Date Eugene Devine DO [address] [place] [address] PCP - General 01/06/20 documented as of this encounter
--- OUTSIDE RECORDS SUMMARY | 2024-11-13 15:15 | XMS_ITS | Encounter Summary ---
Author Organization [facility] Address [address] [facility] [place] [address] Care Team Providers Care Rehabilitation Therapist Name Role Phone Eugene Devine DO Primary Care Provider + [phone] Arpan Cardoso MD Unavailable [phone] Eugene Devine DO Unavailable [phone] Eugene Devine DO Primary Care Provider + [phone] Encounter Details Date Type Department Care Team (Late st Contact Info) Description 01/30/2023 Orders Only [facility] [address] [facility] [facility] [facility] [address] [place] [address] A, Unknown Practice [address] [place], [place] [phone] Social History Tobacco Use Types Packs/Day Years [...] [address] [place] [phone] 02/11/2025 2:20 PM EST Office Visit [facility] [address] [place] [address] Ana Sharpe MD [address] [place] [address] documented as of this encounter Procedures Procedure Name Priority Date/Time Associated Diagnosis Comments SCANNED LABS Routine 01/30/2023 10:19 AM EDT documented in this encounter Results * SCANNED LABS (01/30/2023 10:19 AM EDT) us Unknown Practice A LAB CHG PERFORMABLES Final Re sult documented in this encounter Visit Diagnoses Not on filedocumented in this encounter Care Teams Rehabilitation Therapist Relationship Specialty Start Date End Date Eugene Devine DO PCP - General Internal Medicine 09/12/22 10/08/23 Eugene Devine DO [address] [place] [address] PCP - Devoted 04/08/20 Eugene Devine DO [address] [place] [address] PCP - General Internal Medicine 10/09/23 Arpan Cardoso MD [address] [place] [address] [place] [address] Referring Physician Ophthalmology 04/16/23 documented as of this encounter
--- OUTSIDE RECORDS SUMMARY | 2024-11-13 15:15 | XMS_ITS | Encounter Summary ---
Author Organization [facility] Address [address] [place] [address] Phone Care Team Providers Care Wood Room Hand Name Role Phone Eugene Devine DO Primary Care Provider Encounter Details Date Type Department Care Team (Late st Contact Info) Description 03/26/2020 Orders Only [facility] [address] [place] [address] Conversion, Onbase Social History Tobacco Use Types [...] Description 03/18/2025 11:10 AM EST Office Visit [place] [address] [place] [address] Moshe Hernandez MD 703 [facility] 2, [address] [place] [address] Scheduled Orders Name Type Priority Associated Diagnoses Orde r Schedule OUTSIDE LAB SCAN Lab Ordered: 03/26/2020 documented as of this encounter Visit Diagnoses Not on filedocumented in this encounter Care Teams Wood Room Hand Relationship Specialty Start Date End Date Eugene Devine DO [address] [place] [address] PCP - General 01/06/20 documented as of this encounter
--- OUTSIDE RECORDS SUMMARY | 2024-11-13 15:15 | XMS_ITS | Encounter Summary ---
Author Organization [facility] Address [address] [facility] [place] [address] Care Team Providers Care Trouble Clerk Name Role Phone Eugene Devine DO Primary Care Provider + [phone] Arpan Cardoso MD Unavailable [phone] Eugene Devine DO Unavailable [phone] Eugene Devine DO Primary Care Provider + [phone] Encounter Details Date Type Department Care Team (Late st Contact Info) Description 05/17/2023 Orders Only [facility] [address] [facility] [address] [place] [address] A, Unknown Practice [address] [place], [place] [phone] Social History Tobacco Use Types Packs/Day Years [...] 01/12/2025 1:30 PM EDT Office Visit [facility] [place] [facility] [address] [place] [phone] 02/11/2025 2:20 PM EST Office Visit [facility] [address] [place] [address] Ana Sharpe MD [address] [place] [address] documented as of this encounter Procedures Procedure Name Priority Date/Time Associated Diagnosis Comments POCT PT/INR Routine 05/17/2023 1:45 PM EST documented in this encounter Results * POCT PT/INR (05/17/2023 1:45 PM EST) us Unknown Practice A LAB BLOOD ORDERABLES Final Re sult documented in this encounter Visit Diagnoses Not on filedocumented in this encounter Additional Health Concerns Assessment Noted Time PHQ-9 Depression Total Score: 0 04/16/19 24 3:00 PM EST documented as of this encounter Care Teams Trouble Clerk Relationship Specialty Start Date End Date Eugene Devine DO PCP - General Internal Medicine 09/12/22 10/08/23 Eugene Devine DO [address] [place] [address] PCP - Devoted 04/08/20 Eugene Devine DO [address] [place] [address] PCP - General Internal Medicine 10/09/23 Arpan Cardoso MD [address] [place] [id number] Referring Physician Ophthalmology 04/16/23 documented as of this encounter
--- OUTSIDE RECORDS SUMMARY | 2024-11-13 15:15 | XMS_ITS | Encounter Summary ---
Author Organization [facility] Address [address] [facility] [place] [address] Care Team Providers Care Roll Out Manager Name Role Phone Eugene Devine DO Primary Care Provider + [phone] Arpan Cardoso MD Unavailable [phone] Eugene Devine DO Unavailable [phone] Eugene Devine DO Primary Care Provider + [phone] Encounter Details Date Type Department Care Team (Late st Contact Info) Description 09/12/2022 Abstract [facility] [address] [facility] [address] [place] [phone] Eugene Devine DO [address] [facility] [address] [place] [address] Social History Tobacco Use Types Packs/Day Years Used Date Smoking Tobacco: Former Cigarettes Q uit: 04/08/1968 Smokeless Tobacco: Never Tobacco Cessation:Counseling Given: Not Answered Comments:>10 years since last smoked Alcohol Use Standard Drinks/Week Comments Never 0 [...] Date Recorded Patient Health Questionnaire-2 Score 0 09/13/2022 Sex and Gender Information Value Date Recorded Sex Assigned at Not on file Legal Sex Male 6:50 PM EDT Gender Identity Not on file Sexual Orientation Not on file documented as of this encounter Functional Status * Over the past 2 weeks, how often have you been bothered by any of the following problems? Question Answer Date of Assessment Author Little interest or pleasure in doing things Not at all 09/13/2022 10:00 AM EDT Tanya Barlow LP N Feeling down, depressed, or hopeless Not at all 09/13/2022 10:00 AM EDT Tanya Barlow LP N Patient Health Questionnaire -2 Score 0 09/13/2022 10:00 AM EDT Tanya Barlow LP N documented as of this encounter Plan of Treatment Upcoming Encounters Date Type Department Care Team (Late st Contact Info) Description 01/12/2025 1:30 PM EDT Office Visit [facility] [address] [place] [address] 02/11/2025 2:20 PM EST Office Visit [facility] [address] [place] [address] Ana Sharpe MD [address] [place] [address] documented as of this encounter Visit Diagnoses Not on filedocumented in this encounter Care Teams Roll Out Manager Relationship Specialty Start Date End Date Eugene Devine DO PCP - General Internal Medicine 09/12/22 10/08/23 Eugene Devine DO [address] [place] [address] PCP - Devoted 04/08/20 Eugene Devine DO [address] [place] [address] PCP - General Internal Medicine 10/09/23 Arpan Cardoso MD [address] [place], [place] [phone] Referring Physician Ophthalmology 04/16/23 documented as of this encounter
--- OUTSIDE RECORDS SUMMARY | 2024-11-13 15:15 | XMS_ITS | Encounter Summary ---
Author Organization [facility] Address [address] [place] [address] Phone Care Team Providers Care Obstetrician And Gynaecologist Name Role Phone Eugene Devine DO Primary Care Provider [phone] Encounter Details Date Type Department Care Team (Late st Contact Info) Description 04/24/2022 Orders Only [facility] [address] [place] [address] Conversion, Onbase Social History Tobacco Use Types [...] Description 03/18/2025 11:10 AM EST Office Visit [place] [address] [place] [address] Moshe Hernandez MD 703 [facility] 2, [address] [place] [address] Scheduled Orders Name Type Priority Associated Diagnoses Orde r Schedule OUTSIDE LAB SCAN Lab Ordered: 04/24/2022 documented as of this encounter Visit Diagnoses Not on filedocumented in this encounter Care Teams Obstetrician And Gynaecologist Relationship Specialty Start Date End Date Eugene Devine DO [address] [place] [address] PCP - General 01/06/20 documented as of this encounter
--- OUTSIDE RECORDS SUMMARY | 2024-11-13 15:15 | XMS_ITS | Encounter Summary ---
Author Organization [facility] Address [address] [place] [address] Phone Care Team Providers Care Automatic Grinder Operator Name Role Phone Eugene Devine DO Primary Care Provider [phone] Encounter Details Date Type Department Care Team (Late st Contact Info) Description 11/29/2022 Scanned Document [facility] [address] [place] [address] Conversion, Onbase Social History Tobacco Use Types [...] Description 03/18/2025 11:10 AM EST Office Visit [place] [address] [place] [address] Moshe Hernandez MD [address] [facility] [address], [address] [place] [address] documented as of this encounter Visit Diagnoses Not on filedocumented in this encounter Care Teams Automatic Grinder Operator Relationship Specialty Start Date End Date Eugene Devine DO [address] [place] [address] PCP - General 01/06/20 documented as of this encounter
--- OUTSIDE RECORDS SUMMARY | 2024-11-13 15:15 | XMS_ITS | Encounter Summary ---
Author Organization [facility] Address [address] [place] [address] Phone Care Team Providers Care Wash Test Checker Name Role Phone Eugene Devine DO Primary Care Provider [phone] Encounter Details Date Type Department Care Team (Late st Contact Info) Description 12/11/2023 Scanned Document [facility] [address] [place] [phone] Scanning, Generic Provider Social History Tobacco Use [...] Description 03/18/2025 11:10 AM EST Office Visit [address] [place] [address] Moshe Hernandez MD 703 [facility] 2, [address] [place] [address] documented as of this encounter Procedures Procedure Name Priority Date/Time Associated Diagnosis Comments OUTSIDE LAB SCAN 12/11/2023 documented in this encounter Results * OUTSIDE LAB SCAN (12/11/2023) Narrative 12/11/2023 Ordered by an unspecified provider. us Generic Provider Scanning OUTSIDE SCAN Final Result documented in this encounter Visit Diagnoses Not on filedocumented in this encounter Additional Health Concerns Assessment Noted Time A fall risk assessment has been complete d for the patient 06/21/2023 11:11 AM EDT documented as of this encounter Care Teams Wash Test Checker Relationship Specialty Start Date End Date Eugene Devine DO [address] [place] [address] PCP - General 01/06/20 documented as of this encounter
--- OUTSIDE RECORDS SUMMARY | 2024-11-13 15:15 | XMS_ITS | Encounter Summary ---
Author Organization [facility] Address [address] [place] [address] Phone Care Team Providers Care Linen Manager Name Role Phone Eugene Devine DO Primary Care Provider [phone] Encounter Details Date Type Department Care Team (Late st Contact Info) Description 01/28/2021 Orders Only [facility] [address] [place] [address] Conversion, Onbase Social History Tobacco Use Types [...] Description 03/18/2025 11:10 AM EST Office Visit [place] [address] [place] [address] Moshe Hernandez MD 703 [facility] 2, [address] [place] [address] Scheduled Orders Name Type Priority Associated Diagnoses Orde r Schedule OUTSIDE LAB SCAN Lab Ordered: 01/28/2021 documented as of this encounter Visit Diagnoses Not on filedocumented in this encounter Care Teams Linen Manager Relationship Specialty Start Date End Date Eugene Devine DO [address] [place] [address] PCP - General 01/06/20 documented as of this encounter
--- OUTSIDE RECORDS SUMMARY | 2024-11-13 15:15 | XMS_ITS | Encounter Summary ---
Author Organization [facility] Address [address] [place] [address] Phone Care Team Providers Care Head Of Product Name Role Phone Eugene Devine DO Primary Care Provider [phone] Encounter Details Date Type Department Care Team (Late st Contact Info) Description 04/16/2024 Scanned Document [facility] [address] [place] [phone] Scanning, Generic Provider Social History Tobacco Use [...] Description 03/18/2025 11:10 AM EST Office Visit [place] [address] [place] [address] Moshe Hernandez MD 703 [facility] 2, [address] [place] [address] documented as of this encounter Procedures Procedure Name Priority Date/Time Associated Diagnosis Comments OUTSIDE LAB SCAN 04/16/2024 documented in this encounter Results * OUTSIDE LAB SCAN (04/16/2024) Narrative 04/16/2024 Ordered by an unspecified provider. us Generic Provider Scanning OUTSIDE SCAN Final Result documented in this encounter Visit Diagnoses Not on filedocumented in this encounter Additional Health Concerns Assessment Noted Time A fall risk assessment has been complete d for the patient 06/21/2023 11:11 AM EDT documented as of this encounter Care Teams Head Of Product Relationship Specialty Start Date End Date Eugene Devine DO [address] [place] [address] PCP - General 01/06/20 documented as of this encounter
--- OUTSIDE RECORDS SUMMARY | 2024-11-13 15:15 | XMS_ITS | Encounter Summary ---
Author Organization [facility] Address [address] [place] [address] Phone Care Team Providers Care Manager Money Name Role Phone Eugene Devine DO Primary Care Provider [phone]- [phone] Encounter Details Date Type Department Care Team (Late st Contact Info) Description 01/13/2021 Orders Only [facility] [address] [place] [address] Conversion, Onbase Social History Tobacco Use Types [...] Description 03/18/2025 11:10 AM EST Office Visit [place] [address] [place] [address] Moshe Hernandez MD 703 [facility] 2, [address] [place] [address] Scheduled Orders Name Type Priority Associated Diagnoses Orde r Schedule OUTSIDE LAB SCAN Lab Ordered: 01/13/2021 documented as of this encounter Visit Diagnoses Not on filedocumented in this encounter Care Teams Manager Money Relationship Specialty Start Date End Date Eugene Devine DO [address] [place] [address] PCP - General 01/06/20 documented as of this encounter
--- OUTSIDE RECORDS SUMMARY | 2024-11-13 15:15 | XMS_ITS | Encounter Summary ---
Author Organization [facility] Address [address] [place] [address] Phone Care Team Providers Care Peoplesoft Consultant Name Role Phone Eugene Devine DO Primary Care Provider [phone] Encounter Details Date Type Department Care Team (Late st Contact Info) Description 05/26/2024 Scanned Document [facility] [address] [place] [phone] Scanning, Generic Provider Social History Tobacco Use [...] Description 03/18/2025 11:10 AM EST Office Visit [place] [address] [place] [address] Moshe Hernandez MD 703 [facility] 2, [address] [place] [address] documented as of this encounter Procedures Procedure Name Priority Date/Time Associated Diagnosis Comments OUTSIDE LAB SCAN 05/26/2024 documented in this encounter Results * OUTSIDE LAB SCAN (05/26/2024) Narrative 05/26/2024 Ordered by an unspecified provider. us Generic Provider Scanning OUTSIDE SCAN Final Result documented in this encounter Visit Diagnoses Not on filedocumented in this encounter Additional Health Concerns Assessment Noted Time A fall risk assessment has been complete d for the patient 06/21/2023 11:11 AM EDT documented as of this encounter Care Teams Peoplesoft Consultant Relationship Specialty Start Date End Date Eugene Devine DO [address] [place] [address] PCP - General 01/06/20 documented as of this encounter
--- OUTSIDE RECORDS SUMMARY | 2024-11-13 15:15 | XMS_ITS | Encounter Summary ---
Author Organization [facility] Address [address] [place] [address] Phone Care Team Providers Care Biometrics Experimentalist Name Role Phone Eugene Devine DO Primary Care Provider [phone] Encounter Details Date Type Department Care Team (Late st Contact Info) Description 04/04/2021 Orders Only [facility] [address] [place] [address] Conversion, Onbase Social History Tobacco Use Types [...] Description 03/18/2025 11:10 AM EST Office Visit [place] [address] [place] [address] Moshe Hernandez MD 703 [facility] 2, [address] [place] [address] Scheduled Orders Name Type Priority Associated Diagnoses Orde r Schedule OUTSIDE LAB SCAN Lab Ordered: 04/04/2021 documented as of this encounter Visit Diagnoses Not on filedocumented in this encounter Care Teams Biometrics Experimentalist Relationship Specialty Start Date End Date Eugene Devine DO [address] [place] [address] PCP - General 01/06/20 documented as of this encounter
--- OUTSIDE RECORDS SUMMARY | 2024-11-13 15:15 | XMS_ITS | Clinical Summary ---
Author Organization [facility] Address [address] [place] [address] Phone Care Team Providers Care Benzene Operator Name Role Phone Eugene Devine Primary Care Provider [phone] Allergies Active Allergy Reactions Criticality Noted Date Comments Ticagrelor Shortness of breath High 05/01/2023 Medications latanoprost (Xalatan) 0.005 % ophthalmic solution Administer 1 drop into both eyes once daily. Active nitroglycerin (Nitrostat) 0.[address] 1 tablet (0.4 mg) under the tongue every 5 minutes if needed for chest pain. Active pravastatin (Pravachol) 80 mg tablet Take 1 tablet (80 mg) by mouth once daily at bedtime. Active timolol (Timoptic) 0.5 % ophthalmic solution Administer 1 drop into affected eye(s). Active valsartan (Diovan) 160 mg tablet Take 1 tablet (160 mg) by mouth once daily. Active warfarin (Coumadin) 5 mg tabletIndications :Paroxysmal atrial fibrillation (Multi) Take as directed per After Visit Summary. 90 tablet 3 4 Active indapamide (Lozol) 1.25 mg tabletIndications :Coronary artery disease, unspecified vessel or lesion type, unspecified whether angina present, unspecified whether [place] or transplanted heart,Hypertensio n, unspecified type Take 1 tablet (1.25 mg) by mouth once daily in the morning. 90 tablet 3 5 06/23/19 26 Active amLODIPine (Norvasc) 10 mg tabletIndications :Hypertension, unspecified type Take 1 tablet (10 mg) by mouth once daily. 90 tablet 3 5 06/23/19 26 Active aspirin 81 mg EC tablet Take 1 tablet (81 mg) by mouth once daily. Active ezetimibe (Zetia) 10 mg tablet Take 1 tablet (10 mg) by mouth once daily. 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 History of non-ST elevation myocardial infarctio n (NSTEMI) 05/01/2023 History of PTCA 05/01/2023 Hypertension 05/01/2023 Mixed hyperlipidemia 05/01/2023 Paroxysmal atrial fibrillation (Multi) Immunizations Immunization Administration Dates Next Due Flu vaccine (IIV4), preservative free *Check age /dose* 01/08/2022 Moderna SARS-CoV-2 Vaccination 02/22/2021 Pneumococcal conjugate vaccine, 13-valent (PREVN AR 13) 01/04/2018 Pneumococcal polysaccharide vaccine, 23-valent, age 2 years and older (PNEUMOVAX 23) 04/08/2009 Family History Medical History Relation Name Comments CABG Brother CVA Mother Heart attack Mother cardiac pacemaker Mother Relation Name Status Comments Brother Mother Social History Tobacco Use Types Packs/Day Years Used Date Smoking Tobacco: Former Cigarettes Smokeless Tobacco: Never Tobacco Cessation:Counseling Given: Not Answered Alcohol Use Standard Drinks/Week Comments Never 0 (1 standard drink = 0.6 oz pur e alcohol) Sex and Gender Information Value Date Recorded Sex Assigned at Not on file Legal Sex Male 4:30 PM EST Gender Identity Not on file Sexual Orientation Not on file Last Filed Vital Signs Vital Sign Reading Time Taken Comments Blood Pressure 118/58 07/16/2024 10:32 AM EDT Pulse 60 07/16/2024 10:32 AM EDT Temperature - - Respiratory Rate - - Oxygen Saturation - - Inhaled Oxygen Concentration - - Weight 99.3 kg (219 lb) 07/16/2024 10:32 AM EDT Height 170.2 cm (5' 7 ) 07/16/2024 10:32 AM EDT Body Mass Index 34.3 07/16/2024 10:32 AM EDT Plan of Treatment Upcoming Encounters Date Type Department Care Team (Late st Contact Info) Description 03/18/2025 11:10 AM EST Office Visit [place] [address] [place] [address] Moshe Hernandez MD [address], [address] [place] [address] Health Maintenance Due Date Last Done Comments Medicare Annual Wellness Visit (AWV) 1940 Diabetes Screening 1958 DTaP/Tdap/Td Vaccines (1 - Tdap) 1960 COVID-19 Vaccine (4 - 2023- season) 2023 02/22/2021, 05/27/2020, 04/29/2020 Influenza Vaccine (#1) 2024 , 02/14/2023, 01/08/2022, Additional history exists Lipid Panel 10/08/2028 10/09/2023, 04/15/2023 Pneumococcal Vaccine Completed 01/04/2018, 11/25/2014, 11/24/2014, Additional history exists Zoster Vaccines Completed 10/01/2019, 08/07, 06/09/2019 RSV High Risk: (Elderly (60+) or Population) Completed 03/04/2023 HIB Vaccines Aged Out No longer eligi ble based on patient's age to complete this topic HPV Vaccines Aged Out No longer eligi ble based on patient's age to complete this topic Hepatitis A Vaccines Aged Out No long er eligible based on patient's age to complete this topic Hepatitis B Vaccines Aged Out No long er eligible based on patient's age to complete this topic IPV Vaccines Aged Out No longer eligi ble based on patient's age to complete this topic Meningococcal Vaccine Aged Out No vince reva eligible based on patient's age to complete this topic Rotavirus Vaccines Aged Out No longer eligible based on patient's age to complete this topic Insurance Quench Quench Care Teams Benzene Operator Relationship Specialty Start Date End Date Eugene Devine DO [address] [place] [address] PCP - General 01/06/20
--- OUTSIDE RECORDS SUMMARY | 2024-11-13 15:15 | XMS_ITS | Encounter Summary ---
Author Organization [facility] Address [address] [place] [address] Care Team Providers Care Tailor Women'S Garment Alteration Name Role Phone Eugene Devine DO Primary Care Provider + [phone] Arpan Cardoso MD Unavailable [phone] Eugene Devine DO Unavailable [phone] Eugene Devine DO Primary Care Provider + [phone] Encounter Details Date Type Department Care Team (Late st Contact Info) Description 05/13/2023 Orders Only [facility] [address] [facility] [address] [place] [address] A, Unknown Practice [address] [place], [place] [id number] Social History Tobacco Use Types Packs/Day Years [...] [address] [place] [address] 02/11/2025 2:20 PM EST Office Visit [facility] [address] [place] [address] Ana Sharpe MD [address] [place] [address] documented as of this encounter Procedures Procedure Name Priority Date/Time Associated Diagnosis Comments SCANNED LABS Routine 05/10/2023 8:12 AM EST documented in this encounter Results * SCANNED LABS (05/10/2023 8:12 AM EST) us Unknown Practice A LAB CHG PERFORMABLES Final Re sult documented in this encounter Visit Diagnoses Not on filedocumented in this encounter Additional Health Concerns Assessment Noted Time PHQ-9 Depression Total Score: 0 04/16/19 3:00 PM EST documented as of this encounter Care Teams Tailor Women'S Garment Alteration Relationship Specialty Start Date End Date Eugene Devine DO PCP - General Internal Medicine 09/12/22 10/08/23 Eugene Devine DO [address] [place] [address] PCP - Devoted 04/08/20 Eugene Devine DO [address] [place] [address] PCP - General Internal Medicine 10/09/23 Arpan Cardoso MD [address] [place], [place] [id number] Referring Physician Ophthalmology 04/16/23 documented as of this encounter
--- OUTSIDE RECORDS SUMMARY | 2024-11-13 15:15 | XMS_ITS | Encounter Summary ---
Author Organization [facility] Address [address] [place] [address] Phone Care Team Providers Care Lay Health Advocate Name Role Phone Eugene Devine DO Primary Care Provider [phone] Encounter Details Date Type Department Care Team (Late st Contact Info) Description 03/11/2024 Scanned Document [facility] [address] [place] [phone] Scanning, Generic Provider Social History Tobacco Use [...] Description 03/18/2025 11:10 AM EST Office Visit [place] [address] [place] [address] Moshe Hernandez MD [address] [facility] [address], [address] [place] [address] documented as of this encounter Procedures Procedure Name Priority Date/Time Associated Diagnosis Comments OUTSIDE LAB SCAN 03/11/2024 documented in this encounter Results * OUTSIDE LAB SCAN (03/11/2024) Narrative 03/11/2024 Ordered by an unspecified provider. us Generic Provider Scanning OUTSIDE SCAN Final Result documented in this encounter Visit Diagnoses Not on filedocumented in this encounter Additional Health Concerns Assessment Noted Time A fall risk assessment has been complete d for the patient 06/21/2023 11:11 AM EDT documented as of this encounter Care Teams Lay Health Advocate Relationship Specialty Start Date End Date Eugene Devine DO [address] [place] [address] PCP - General 01/06/20 documented as of this encounter
--- OUTSIDE RECORDS SUMMARY | 2024-11-13 15:15 | XMS_ITS | Encounter Summary ---
Author Organization [facility] Address [address] [place] [address] Phone Care Team Providers Care Contracting Specialist Name Role Phone Eugene Devine DO Primary Care Provider [phone] Encounter Details Date Type Department Care Team (Late Contact Info) Description 08/10/2024 Scanned Document [facility] [address] [place] [phone] Scanning, Generic Provider Social History Tobacco Use [...] suspected to have Coronavirus/COVID-19? No / Unsure 07/16/2024 10:13 AM EDT documented as of this encounter Plan of Treatment Upcoming Encounters Date Type Department Care Team (Late st Contact Info) Description 03/18/2025 11:10 AM EST Office Visit [facility] [address] [place] [address] Moshe Hernandez MD [address], [address] [place] [address] documented as of this encounter Procedures Procedure Name Priority Date/Time Associated Diagnosis Comments OUTSIDE LAB SCAN 08/10/2024 documented in this encounter Results * OUTSIDE LAB SCAN (08/10/2024) Narrative 08/10/2024 Ordered by an unspecified provider. us Generic Provider Scanning OUTSIDE SCAN Final Result documented in this encounter Visit Diagnoses Not on filedocumented in this encounter Additional Health Concerns Assessment Noted Time A fall risk assessment has been complete d for the patient 07/16/2024 10:32 AM EDT documented as of this encounter Care Teams Contracting Specialist Relationship Specialty Start Date End Date Eugene Devine DO [address] [place] [address] PCP - General 01/06/20 documented as of this encounter
--- OUTSIDE RECORDS SUMMARY | 2024-11-13 15:15 | XMS_ITS | Encounter Summary ---
Author Organization [facility] Address [address] [place] [address] Phone Care Team Providers Care Dielectric Embossing Machine Operator Name Role Phone Eugene Devine DO Primary Care Provider [phone] Encounter Details Date Type Department Care Team (Late st Contact Info) Description 07/07/2024 Scanned Document [facility] [address] [place] [phone] Scanning, Generic Provider Social History Tobacco Use [...] Description 03/18/2025 11:10 AM EST Office Visit [place] [address] [place] [address] Moshe Hernandez MD [address] [facility] [address], [address] [place] [address] documented as of this encounter Procedures Procedure Name Priority Date/Time Associated Diagnosis Comments OUTSIDE LAB SCAN 07/07/2024 documented in this encounter Results * OUTSIDE LAB SCAN (07/07/2024) Narrative 07/07/2024 Ordered by an unspecified provider. us Generic Provider Scanning OUTSIDE SCAN Final Result documented in this encounter Visit Diagnoses Not on filedocumented in this encounter Additional Health Concerns Assessment Noted Time A fall risk assessment has been complete d for the patient 06/21/2023 11:11 AM EDT documented as of this encounter Care Teams Dielectric Embossing Machine Operator Relationship Specialty Start Date End Date Eugene Devine DO [address] [place] [address] PCP - General 01/06/20 documented as of this encounter
--- OUTSIDE RECORDS SUMMARY | 2024-11-13 15:16 | XMS_ITS | Encounter Summary ---
Author Organization [facility] Address [address] [facility] [place] [address] Care Team Providers Care Table Runner Name Role Phone Eugene Devine DO Primary Care Provider + [phone] Arpan Cardoso MD Unavailable [phone] Eugene Devine DO Unavailable [phone] Eugene Devine DO Primary Care Provider + [phone] Encounter Details Date Type Department Care Team (Late st Contact Info) Description 02/17/2019 Abstract [facility] [address] [place] [address] Ewa Douglas, [facility] [address] [facility] [place] [address] Social History Tobacco Use Types Packs/Day Years [...] Visit [facility] [address] [place] [address] 02/11/2025 2:20 PM EST Office Visit [facility] [address] [place] [address] Ana Sharpe MD [address] [place] [address] documented as of this encounter Visit Diagnoses Not on filedocumented in this encounter Care Teams Table Runner Relationship Specialty Start Date End Date Eugene Devine DO PCP - General Internal Medicine 09/12/22 10/08/23 Eugene Devine DO [address] [place] [address] PCP - Devoted 04/08/20 Eugene Devine DO [address] [place] [address] PCP - General Internal Medicine 10/09/23 Arpan Cardoso MD [address] [place] [address] Referring Physician Ophthalmology 04/16/23 documented as of this encounter
--- OUTSIDE RECORDS SUMMARY | 2024-11-13 15:16 | XMS_ITS | Encounter Summary ---
Author Organization [facility] Address [address] [facility] [place] [address] Care Team Providers Care Loan Collector Name Role Phone Eugene Devine DO Primary Care Provider + [phone] Arpan Cardoso MD Unavailable [phone] Eugene Devine DO Unavailable [phone] Eugene Devine DO Primary Care Provider + [phone] Encounter Details Date Type Department Care Team (Late st Contact Info) Description 02/17/2019 Abstract [facility] [address] [place] [address] Ewa Douglas, [facility] [address] [facility] [place] [address] Social History Tobacco Use Types Packs/Day Years [...] Visit [facility] [address] [place] [address] 02/11/2025 2:20 PM EST Office Visit [facility] [address] [place] [address] Ana Sharpe MD [address] [place] [address] documented as of this encounter Visit Diagnoses Not on filedocumented in this encounter Care Teams Loan Collector Relationship Specialty Start Date End Date Eugene Devine DO PCP - General Internal Medicine 09/12/22 10/08/23 Eugene Devine DO [address] [place] [address] PCP - Devoted 04/08/20 Eugene Devine DO [address] [place] [address] PCP - General Internal Medicine 10/09/23 Arpan Cardoso MD [address] [place] [address] Referring Physician Ophthalmology 04/16/23 documented as of this encounter
--- OUTSIDE RECORDS SUMMARY | 2024-11-13 15:16 | XMS_ITS | Encounter Summary ---
Author Organization [facility] Address [address] [place] [address] Care Team Providers Care Drying Oven Tender Name Role Phone Eugene Devine DO Primary Care Provider + [phone] Arpan Cardoso MD Unavailable [phone] Eugene Devine DO Unavailable [phone] Eugene Devine DO Primary Care Provider + [phone] Encounter Details Date Type Department Care Team (Late st Contact Info) Description 01/04/2022 Abstract [facility] [address] [place] [address] Ewa Douglas, [facility] [address] [place] [address] Social History Tobacco Use Types Packs/Day Years [...] Visit [facility] [address] [place] [address] 02/11/2025 2:20 PM EST Office Visit [facility] [address] [place] [address] Ana Sharpe MD [address] [place] [address] documented as of this encounter Visit Diagnoses Not on filedocumented in this encounter Care Teams Drying Oven Tender Relationship Specialty Start Date End Date Eugene Devine DO PCP - General Internal Medicine 09/12/22 10/08/23 Eugene Devine DO [address] [place] [address] PCP - Devoted 04/08/20 Eugene Devine DO [address] [place] [address] PCP - General Internal Medicine 10/09/23 Arpan Cardoso MD [address] [place] [address] Referring Physician Ophthalmology 04/16/23 documented as of this encounter
--- OUTSIDE RECORDS SUMMARY | 2024-11-13 15:16 | XMS_ITS | Encounter Summary ---
Author Organization [facility] Address [address] [facility] [place] [address] Care Team Providers Care Pillowcase Cleaner Name Role Phone Eugene Devine DO Primary Care Provider + [phone] Arpan Cardoso MD Unavailable [phone] Eugene Devine DO Unavailable [phone] Eugene Devine DO Primary Care Provider + [phone] Encounter Details Date Type Department Care Team (Late st Contact Info) Description 01/30/2019 Abstract [facility] [address] [place] [address] Ewa Douglas, [facility] [address] [facility] [place] [address] Social History Tobacco Use Types Packs/Day Years [...] Visit [facility] [address] [place] [address] 02/11/2025 2:20 PM EST Office Visit [facility] [address] [place] [address] Ana Sharpe MD [address] [place] [address] documented as of this encounter Visit Diagnoses Not on filedocumented in this encounter Care Teams Pillowcase Cleaner Relationship Specialty Start Date End Date Eugene Devine DO PCP - General Internal Medicine 09/12/22 10/08/23 Eugene Devine DO [address] [place] [address] PCP - Devoted 04/08/20 Eugene Devine DO [address] [place] [address] PCP - General Internal Medicine 10/09/23 Arpan Cardoso MD [address] [place] [address] Referring Physician Ophthalmology 04/16/23 documented as of this encounter
--- OUTSIDE RECORDS SUMMARY | 2024-11-13 15:16 | XMS_ITS | Encounter Summary ---
Author Organization [facility] Address [address] [facility] [address] Care Team Providers Care Sales Correspondent Name Role Phone Eugene Devine DO Primary Care Provider + [phone] Arpan Cardoso MD Unavailable [phone] Eugene Devine DO Unavailable [phone] Eugene Devine DO Primary Care Provider + [phone] Encounter Details Date Type Department Care Team (Late st Contact Info) Description 11/03/2018 Abstract [facility] [address] [place] [address] Ewa Douglas, [facility] [address] [facility] [place] [address] Social History Tobacco Use Types Packs/Day Years [...] Visit [facility] [address] [place] [address] 02/11/2025 2:20 PM EST Office Visit [facility] [address] [place] [address] Ana Sharpe MD [address] [place] [address] documented as of this encounter Visit Diagnoses Not on filedocumented in this encounter Care Teams Sales Correspondent Relationship Specialty Start Date End Date Eugene Devine DO PCP - General Internal Medicine 09/12/22 10/08/23 Eugene Devine DO [address] [place] [address] PCP - Devoted 04/08/20 Eugene Devine DO [address] [place] [address] PCP - General Internal Medicine 10/09/23 Arpan Cardoso MD [address] [place] [address] Referring Physician Ophthalmology 04/16/23 documented as of this encounter
--- OUTSIDE RECORDS SUMMARY | 2024-11-13 15:16 | XMS_ITS | Encounter Summary ---
Author Organization [facility] Address [address] [facility] [place] [address] Care Team Providers Care Shoe Stainer Name Role Phone Eugene Devine DO Primary Care Provider + [phone] Arpan Cardoso MD Unavailable [phone] Eugene Devine DO Unavailable [phone] Eugene Devine DO Primary Care Provider + [phone] Encounter Details Date Type Department Care Team (Late st Contact Info) Description 04/10/2023 Orders Only [facility] [address] [facility] [address] [place] [address] A, Unknown Practice [address] [place], [place] [address] Social History Tobacco Use Types Packs/Day Years [...] you have a drink containing alcohol? Never 03/05/2023 Q2: How many drinks containi ng alcohol do you have on a typical day when you are drinking? Patient does not drink Q3: How often do you have si x or more drinks on one occasion? Never 03/05/2023 PHQ-2 Answer Date Recorded Patient Health Questionnaire-2 [...] Visit [facility] [address] [facility] [address] [place] [address] 02/11/2025 2:20 PM EST Office Visit [facility] [address] [facility] [address] [place] [address] Ana Sharpe MD [address] [facility] [address] [place] [address] documented as of this encounter Procedures Procedure Name Priority Date/Time Associated Diagnosis Comments SCANNED LABS Routine 04/09/2023 8:40 AM EST documented in this encounter Results * SCANNED LABS (04/09/2023 8:40 AM EST) us Unknown Practice A LAB CHG PERFORMABLES Final Re sult documented in this encounter Visit Diagnoses Not on filedocumented in this encounter Care Teams Shoe Stainer Relationship Specialty Start Date End Date Eugene Devine DO PCP - General Internal Medicine 09/12/22 10/08/23 Eugene Devine DO [address] [facility] [address] [place] [address] PCP - Devoted 04/08/20 Eugene Devine DO [address] [facility] [address] [place] [address] PCP - General Internal Medicine 10/09/23 Arpan Cardoso MD [address] [place] [address] Referring Physician Ophthalmology 04/16/23 documented as of this encounter
--- OUTSIDE RECORDS SUMMARY | 2024-11-13 15:16 | XMS_ITS | Encounter Summary ---
Author Organization [facility] Address [address] [address] Care Team Providers Care Teller Manager Name Role Phone Eugene Devine DO Primary Care Provider + [phone] Arpan Cardoso MD Unavailable [phone] Eugene Devine DO Unavailable [phone] Eugene Devine DO Primary Care Provider + [phone] Encounter Details Date Type Department Care Team (Late st Contact Info) Description 02/17/2019 [facility] [address] [place] [id number] Ewa Douglas, [facility] [address] [facility] [place] [address] Social History Tobacco Use Types Packs/Day Years [...] Visit [facility] [address] [place] [address] 02/11/2025 2:20 PM EST Office Visit [facility] [address] [place] [address] Ana Sharpe MD [address] [place] [address] documented as of this encounter Visit Diagnoses Not on filedocumented in this encounter Care Teams Teller Manager Relationship Specialty Start Date End Date Eugene Devine DO PCP - General Internal Medicine 09/12/22 10/08/23 Eugene Devine DO [address] [place] [address] PCP - Devoted 04/08/20 Eugene Devine DO [address] [place] [address] PCP - General Internal Medicine 10/09/23 Arpan Cardoso MD [address] [place] [address] Referring Physician Ophthalmology 04/16/23 documented as of this encounter
--- NOTE | 2024-11-13 15:21 | XR_ITS ---
The [address] [address] Patient Name: SAMUEL KHALIL MRN: [id number] date: 1940 Sex: M Assigned Patient Location: ED.MAIN Current Patient Location: ED.MAIN Accession/Order Number: [id number] Exam Date: 11/13/2024 15:50 Report Date: 11/13/2024 15:51 At the request of: ESTER HINSON MD Procedure: XR ribs RT min 3V w CXR1V PA CHEST WITH 4 VIEWS RIGHT RIBS: CLINICAL HISTORY: Fall 2 hours ago. Right rib pain COMPARISON: None FINDINGS: Heart appears normal in size. Calcified pleural plaquing seen bilaterally. No consolidation pneumothorax pleural effusion or free air. Additional views of the right ribs demonstrate no displaced rib fracture. XR/XR ribs RT min 3V w CXR1V IMPRESSION: EVIDENCE OF PRIOR ASBESTOS EXPOSURE. NO ACUTE PROCESS IS SEEN. Impression dictated by: Brando Lazo Jr., DKattOKatt 11/13/2024 3:51 PM Dictation Location: [place] [address] Electronically authenticated by: [id number] Y Date: 11/13/2024 15:51
--- NOTE | 2024-11-13 15:21 | XR_ITS ---
The [address] [address] Patient Name: SAMUEL KHALIL MRN: [id number] date: 1940 Sex: M Assigned Patient Location: ED.MAIN Current Patient Location: ED.MAIN Accession/Order Number: [id number] Exam Date: 11/13/2024 15:48 Report Date: 11/13/2024 15:50 At the request of: ESTER HINSON MD Procedure: XR wrist RT min 3V RIGHT WRIST - 3 views CLINICAL HISTORY: Fall 2 hours ago now with pain COMPARISON: None FINDINGS: Bones are grossly demineralized limiting evaluation for fracture. Vascular calcifications are present. No focal soft tissue abnormality. No acute bony process is seen. Carpus demonstrates degenerative change most prominent involving the CMC joint of the thumb and scaphotrapezial joints. XR/XR wrist RT min 3V IMPRESSION: DEGENERATIVE CHANGES WITHOUT ACUTE BONY PROCESS. Impression dictated by: Brando Lazo Jr., D.O. 11/13/2024 3:50 PM Dictation Location: [place] [address] Electronically authenticated by: [id number] Y Date: 11/13/2024 15:50
--- NOTE | 2024-11-13 15:26 | ED.GENADUL1 ---
HPI HPI - General Adult General Chief complaint: Fall Stated complaint: fall - 11/13/24 rib and wrist pain Time Seen by Provider: 11/13/24 15:16 Source: patient Mode of arrival: walk-in History of Present Illness HPI narrative: 83-year-old male presents for pain in his right wrist and his right ribs. He fell trying to get a branch out of the tree today, just before coming into the emergency department. He does not believe he hit his head and he had no loss of consciousness. No neck pain or shortness of breath or abdominal pain. No injury to his legs or his left arm. Related Data Allergies Allergy/AdvReac Type Severity Reaction Status Date / Time No Known Drug Allergies Allergy Verified 11/13/24 15:22 Review of Systems ROS Narrative Not obtainable, age and hard of hearing PFSH PFSH Social History Little interest or pleasure in doing things: not at all Feeling down, depressed, or hopeless: not at all Exam Narrative Exam Narrative: Nurses note and vital signs reviewed and patient is not hypoxic. General: The patient appears well and in no apparent distress. Patient is resting comfortably on cart. Skin: Warm, dry, no pallor noted. There is no rash noted. Head: Normocephalic, atraumatic; no scalp hematoma or abrasion. Cervical spine nontender. Eye: Normal conjunctiva, no drainage Ears, Nose, Mouth, and Throat: oral mucosa is moist. Nares patent. Cardiovascular: Regular Rate and Rhythm Respiratory: Patient is in no distress, no accessory muscle use, lungs are clear to auscultation, no wheezing, rales or rhonchi. Breath sounds are equal. No crepitus bruise or abrasion on the right chest but he has some tenderness on the right lower anterior ribs. Back: Cervical, thoracic, and lumbar spines are nontender GI: Soft and nontender including the right upper quadrant Musculoskeletal: The patient has no evidence of calf tenderness, no pitting edema, symmetrical pulses noted bilaterally Neurological: Awake and alert, hard of hearing Psychiatric: Cooperative Constitutional Vital Signs, click to edit/add: Last Vital Signs Temp 98.8 F 11/13/24 15:15 Pulse 56 L 11/13/24 15:15 Resp 18 11/13/24 15:15 BP 171/77 H 11/13/24 15:15 Pulse Ox 98 11/13/24 15:15 O2 Del Method Room Air 11/13/24 15:15 Course Vital Signs Vital signs: Vital Signs Temperature 98.8 F 11/13/24 15:15 Pulse Rate 56 L 11/13/24 15:15 Respiratory Rate 18 11/13/24 15:15 Blood Pressure 171/77 H 11/13/24 15:15 Pulse Oximetry 98 11/13/24 15:15 Oxygen Delivery Method Room Air 11/13/24 15:15 Temperature 98.8 F 11/13/24 15:15 Pulse Rate 56 L 11/13/24 15:15 Respiratory Rate 18 11/13/24 15:15 Blood Pressure 171/77 H 11/13/24 15:15 Pulse Oximetry 98 11/13/24 15:15 Oxygen Delivery Method Room Air 11/13/24 15:15 Medical Decision Making MDM Narrative Medical decision making narrative: X-rays of ribs and wrist per radiologist show no acute finding. The findings were discussed with the patient and his family and he is discharged home. Rest ice and Tylenol are recommended. Treatment diagnosis and follow-up were discussed thoroughly. Differential Diagnosis Differential Diagnosis: Contusion, sprain, pneumothorax, rib fracture Imaging Data Rib and wrist x-rays: Radiologist's impression: ITS Impressions Ribs X-Ray 11/13/24 15:21 IMPRESSION: EVIDENCE OF PRIOR ASBESTOS EXPOSURE. NO ACUTE PROCESS IS SEEN. Impression dictated by: Brando Lazo Jr., D.O. 11/13/2024 3:51 PM Dictation [facility] Electron[facility] authenticated by: [id number] Y Date: 11/13/2024 15:51 Wrist X-Ray 11/13/24 15:21 IMPRESSION: DEGENERATIVE CHANGES WITHOUT ACUTE BONY PROCESS. Impression dictated by: Brando Lazo Jr., D.O. 11/13/2024 3:50 PM Dictation Location[facility] Electronically authenticated by: [id number] Y Date: 11/13/2024 15:50 Discharge Plan Discharge Chief Complaint: Fall Clinical Impression: Contusion of rib on right side, Right wrist sprain Patient Disposition: Home, Self-Care Time of Disposition Decision: 16:00 Condition: Good Mode of Transportation: Private Vehicle Print Language: Tunisian Instructions: Wrist Sprain (ED), Rib Contusion (ED) Referrals: ALVARO TANNER [Primary Care Provider, Family Practice] - 1 week
--- NOTE | 2024-11-13 16:11 | PC.NURSE ---
no bruising to right side ribs, no swelling, deformity and skin intact to right wrist. pt able to move right wrist and fingers.
== END 2024-11-13 16:17 | disposition home or self-care (01) ==
PROVIDERS: Emergency Provider Emergency Medicine; PCP Internal Medicine
DX: S20.211A Contusion of right front wall of thorax, initial encounter (principal); S63.501A Unspecified sprain of right wrist, initial encounter; W18.30XA Fall on same level, unspecified, initial encounter; M25.531 Pain in right wrist; R07.89 Other chest pain
CPT/HCPCS: 71101; 73110; 99284

== ENCOUNTER 2024-12-07 02:01 | Outpatient (RCR) | payer OTHER, SELFPAY | END 2025-01-05 15:28 | disposition home or self-care (01) | LOC: MM 02:01 | PROVIDERS: PCP Internal Medicine; Visit Provider Internal Medicine | DX: Z51.81 Encounter for therapeutic drug level monitoring (principal); Z79.01 Long term (current) use of anticoagulants; I48.91 Unspecified atrial fibrillation | CPT/HCPCS: 85610; G0463 ==

== ENCOUNTER 2025-01-06 04:35 | Outpatient (RCR) | payer OTHER, SELFPAY | END 2025-02-05 23:59 | disposition home or self-care (01) | LOC: MM 04:35 | PROVIDERS: PCP Internal Medicine; Visit Provider Internal Medicine | DX: Z51.81 Encounter for therapeutic drug level monitoring (principal); Z79.01 Long term (current) use of anticoagulants; I48.91 Unspecified atrial fibrillation ==

== ENCOUNTER 2025-02-01 15:38 | Emergency (ER) | payer OTHER, SELFPAY ==
[2025-02-01 15:43] VITALS: BP 132/77; PULSE 63; TEMP 37.2; O2SAT 98; BMI 35.8
--- OUTSIDE RECORDS SUMMARY | 2025-02-01 15:45 | XMS_ITS | Clinical Summary ---
Author Organization [facility] Address [address] [place] [address] Phone Care Team Providers Care Publishing Editor Name Role Phone Eugene Devine Primary Care Provider [phone] Allergies Active AllergyReactionsCriticalityNoted DateCommentsTicagrelorShortness of xdulffAuxz65/24/2024 Medications MedicationSigDispense QuantityRefillsLast FilledStart DateEnd DateStatus latanoprost (Xalatan) 0.005 % ophthalmic solution Administer 1 drop into both eyes once daily.Active nitroglycerin (Nitrostat) 0.[address] 1 tablet (0.4 mg) under the tongue every 5 minutes if needed for chest pain.Active pravastatin (Pravachol) 80 mg tablet Take 1 tablet (80 mg) by mouth once daily at bedtime.Active timolol (Timoptic) 0.5 % ophthalmic solution Administer 1 drop into affected eye(s).Active valsartan (Diovan) 160 mg tablet Take 1 tablet (160 mg) by mouth once daily.Active indapamide (Lozol) 1.25 mg tablet Indications:Coronary artery disease, unspecified vessel or lesion type, unspecified whether angina present, unspecified whether [place] or transplanted heart,Hypertension, unspecified typeTake 1 tablet (1.25 mg) by mouth once daily in the morning. 90 tablet /ctive amLODIPine (Norvasc) 10 mg tablet Indications:Hypertension, unspecified typeTake 1 tablet (10 mg) by mouth once daily. 90 tablet /ctive aspirin 81 mg EC tablet Take 1 tablet (81 mg) by mouth once daily.Active ezetimibe (Zetia) 10 mg tablet Take 1 tablet (10 mg) by mouth once daily.Active warfarin (Coumadin) 5 mg tablet Indications:Paroxysmal atrial fibrillation (Multi)TAKE DIRECTED PER AFTER VISIT SUMMARY 90 tablet 5Active warfarin (Coumadin) 5 mg tablet Indications:Paroxysmal atrial fibrillation (Multi)Take as directed per After Visit Summary. 90 tablet 308/41Discontinued Active Problems ProblemNoted DateDiagnosed DateFormer nqfwzj0306/21/2023MI 34.0-34.9,adult 06/21/2023radycardia by rkanpyzkghmkgxpks36/24/2024AD (coronary artery disease)05/01/2023Echocardiogram xjzafvve86/24/2024History of nephrectomy, right 05/01/2023History of non-ST elevation myocardial infarction (NSTEMI)05/01/2023 History of PTCA05/01/20235328Jlsosahtdlsy37/24/2024Mixed fmrlyjvwixlsyj93/24/2024 Paroxysmal atrial cjardiimlsam41/24/2024 Encounters DateTypeDepartmentCare TcayGhytawrsnbn64/08/2025Refill [facility] [address] [address] Alba Thayer MD Paroxysmal atrial fibrillation (Multi)from Last 3 Months Immunizations ImmunizationAdministration DatesNext DueFlu vaccine (IIV4), preservative free *Check age/dose*01/08/2022Moderna SARS-CoV-2 Ftekocnmyha77/17/2021neumococcal conjugate vaccine, 13-valent (PREVNAR 13)01/04/2018Pneumococcal polysaccharide vaccine, 23-valent, age 2 years and older (PNEUMOVAX 23)04/08/2009 Family History Medical HistoryRelationNameCommentsCABGBrotherCVAMotherHeart attackMothercardiac pacemakerMotherRelationNameStatusCommentsBrotherMother Social History Tobacco UseTypesPacks/DayYears UsedDateSmoking Tobacco: FormerCigarettes Smokeless Tobacco: Never Tobacco Cessation:Counseling Given: Not Answered Alcohol UseStandard Drinks/WeekCommentsNever0 (1 standard drink = 0.6 oz pure alcohol)Sex and Gender InformationValueDate RecordedSex Assigned at BirthNot on fileLegal CncOihd20/25/2022 4:30 PM ESTGender IdentityNot on fileSexual OrientationNot on file Last Filed Vital Signs Vital SignReadingTime TakenCommentsBlood Ngxxygkk052/5804/01/2025 10:32 AM EDT Jraiz8119 10:32 AM EDTTemperature--Respiratory Rate--Oxygen Saturation-- Inhaled Oxygen Concentration--Tjmelk76.3 kg (219 lb)07/16/2024 10:32 AM EDT Vujqwg060.2 cm (5' 7 )07/16/2024 10:32 AM EDTBody Mass Index34.304 10:32 AM EDT Plan of Treatment DateTypeDepartmentCare Team (Latest Contact Info)Cprpvqlrsek04/24/2025 1:10 PM ESTOffice Visit [address] [place] [address] Alba Thayer MD [address] [facility] [address] [place] [address] Health MaintenanceDue DateLast DoneCommentsMedicare Annual Wellness Visit (AWV) 1940Diabetes Bfipcezpr12/09/1957DTaP/Tdap/Td Vaccines (1 - Tdap)1960 Influenza Vaccine (#1)509/01/2024, 02/14/2023, 01/08/2022, Additional history existsCOVID-19 Vaccine ( season), 05/27/2020, 1Lipid Panel7/06/2023, 4Pneumococcal KtbayxqUuuaywhpk59/29/2018, 11/25/2014, 11/24/2014, Additional history exists Zoster SmcvzlldFgcwasxqm42/25/2020, 08/26/2019, 06/09/2019RSV High Risk: (Elderly (60+) or Population)Imvycjmol25/27/2023HIB VaccinesAged OutNo longer eligible based on patient's age to complete this topicHPV VaccinesAged OutNo longer eligible based on patient's age to complete this topicHepatitis A VaccinesAged OutNo longer eligible based on patient's age to complete this topic Hepatitis B VaccinesAged OutNo longer eligible based on patient's age to complete this topicIPV VaccinesAged OutNo longer eligible based on patient's age to complete this topicMeningococcal VaccineAged OutNo longer eligible based on patient's age to complete this topicRotavirus VaccinesAged OutNo longer eligible based on patient's age to complete this topic Insurance * Guarantor: Katia Thomas TypeRelation to PatientDate of BirthPhone Billing AddressPersonal/RayzjcLhyj37/09/1941 [address] [address] * Guarantor: Katia Thomas TypeRelation to PatientDate of BirthPhone Billing AddressPersonal/BouchkDurh90/09/1941 [address] [address] Care Teams Team MemberRelationshipSpecialtyStart DateEnd Date Eugene Devine DO [address] [place] [address] [facility]01/06/20
--- OUTSIDE RECORDS SUMMARY | 2025-02-01 15:45 | XMS_ITS | Clinical Summary ---
Author Organization [facility] Address [address] [place] [address] Care Team Providers Care Alteration Manager Name Role Phone Arpan Cardoso MD Unavailable [phone] Eugene Devine DO Unavailable [phone] Campos Blank MD Primary Care Provider [phone] Allergies Active AllergyReactionsCriticalityNoted DateCommentsApixabanHeadacheLow 09/06/2022TicagrelorShortness of ibtlgrAqiy42/24/2024 Medications MedicationSigDispense QuantityRefillsLast FilledStart DateEnd DateStatus famotidine (Pepcid) 20 MG tablet Take 20 mg by mouth Daily as needed.Active Cholecalciferol (Vitamin D3) 125 MCG (5000 UT) chewable tablet 1 (one) time each day at the same time.Active latanoprost (Xalatan) 0.005 % ophthalmic solution 1 (one) time each day at the same time.Active nitroglycerin (Nitrostat) 0.4 MG SL tablet as directed SublingualActive timolol (Timoptic) 0.5 % ophthalmic solution 1 (one) time each day at the same time.Active zinc 100 MG tablet 1 (one) time each day at the same time.Active warfarin (Coumadin) 5 MG tablet Take 5 mg by mouth 1 (one) time each day Take as directed per After Visit Summary.Active furosemide (Lasix) 20 MG tablet Indications:Venous insufficiency,Urine retentionTake 1 tablet (20 mg) by mouth Daily as needed (As needed every AM PRN edema) One tab every AM daily PRN edema 60 tablet 5Active amLODIPine (Norvasc) 10 MG tablet Indications:Essential hypertensionTake 1 tablet (10 mg) by mouth Daily 90 tablet 5Active indapamide (Lozol) 1.25 MG tablet Indications:Essential hypertensionTake 1 tablet (1.25 mg) by mouth in the morning. 90 tablet 506Active ezetimibe (Zetia) 10 MG tablet Indications:Mixed hyperlipidemiaTake 1 tablet by mouth once daily 90 tablet 5Active pravastatin (Pravachol) 80 MG tablet Indications:Mixed hyperlipidemiaTake 1 tablet (80 mg) by mouth at bedtime 90 tablet 5Active valsartan (Diovan) 160 MG tablet Indications:Essential hypertensionTake 1 tablet (160 mg) by mouth Daily 90 tablet 5Active traZODone (Desyrel) 50 MG tablet Indications:Insomnia, unspecified typeTAKE 1 TABLET BY MOUTH ONCE DAILY NEEDED AT BEDTIME 90 tablet 51Discontinued traMADol (Ultram) 50 MG tablet Indications:Rib contusion, right, subsequent encounter,Acute right ankle pain, Right ankle swelling,Right foot painTake 1 tablet (50 mg) by mouth every 6 (six) hours if needed for severe pain 28 tablet Discontinued Active Problems ProblemNoted DateDiagnosed QlssHcslkwkmfnb84/12/2025Former jluazg4106/21/2023 Lumbar disc kffsnaj9209/10/2022Facet arthritis, degenerative, cervical spine 3Cervical spondylosis without bqrjrxxamw10/18/4616Rguiksam51/09/2021PAF (paroxysmal atrial fibrillation)01/12/2020Coronary artery disease involving [place] coronary artery of [place] heart without angina tmzowuha87/22/2020 Asymmetrical sensorineural hearing loss11/03/2018Solitary kidney, acquired 03/21/2016Stage 3a chronic kidney disease (CKD)07/29/2015Essential hypertension 07/07/2015 Assessment & Plan (09/06/2022 3:58 PM EDT): Has appt in 7 week, will re ck bp then watch - /6 Mixed aytrvnxryjgsim58/31/2016History of renal cell rjrlcgymo33/31/2016 Resolved Problems ProblemNoted DateDiagnosed DateResolved DateBradycardia by electrocardiogram Echocardiogram coujplgc44History of non-ST elevation myocardial infarction (NSTEMI)History of PTCA Medicare annual wellness visit, ododouflsv94/09/2024 04/16/2023CP (advance care planning)Intractable headache due to drugEncounter for medication cnherkbkez63/11/2023 04/16/2023Morbid hcogvhk62Sinus zobdkjpyi09 Type 2 diabetes mellitus with other skin ulcerough ctinic kbvsqfwsl52ortic stenosis oncentric left ventricular wrnojayzitz83 Diabetes pyihemqj37Facet arthritis of lumbosacral region History of kidney lduyehu88Vasovagal suerawx02 Assessment & Plan (09/06/2022 3:57 PM EDT): He had n& v in early am, then, weak and dizzy for awhile. No nysatgmus or reproducible s&s now. No focal signs. 162/80. hR 58-60 was in yard long hrs yesterday . Prob VV episode stable now. [Plan to re ck bp in am at home and call if not improved Chronic yzcpfqkf59ST elevation (STEMI) myocardial infarction involving left anterior descending coronary aeklej31 Atherosclerosis of coronary artery without angina Skin ulcer due to diabetes qtwfaldr84Sensorineural hearing loss, unilateral, right ear, with unrestricted hearing on the contralateral side hronic maxillary kgwjnpndl03hronic ethmoidal hlzmdiuzc81 Encounters DateTypeDepartmentCare PxntDzzvdxnghym60/07/2025 1:45 PM EDTOffice Visit [facility] [address] [facility] [address] [place] [phone] Corona Orozco NP Essential hypertension (Primary Dx); Stage 3a chronic kidney disease (CKD) ([facility]); Mixed hyperlipidemia; Prediabetes; Coronary artery disease involving [place] coronary artery of [place] heart without angina pectoris; PAF (paroxysmal atrial fibrillation) (HCC); Primary insomnia; Severe obesity (BMI 35.0-39.9) with comorbidity ([facility]); Nonrheumatic aortic valve stenosis; Memory loss; Chronic kidney disease, stage 3a ([facility]); Type 2 diabetes mellitus with stage 3a chronic kidney disease, without long-term current use of insulin (HCC); Need for immunization against /07/0114Tyghxk02/15/2025Telephone [facility] [address] [facility] [address] [place] [phone] Campos Blank MD 12/21/2024Orders Only [facility] [address] [facility] [address] [place] [phone] Funmilayo Hoyos LPN Type 2 diabetes mellitus with stage 3a chronic kidney disease, without long-term current use of insulin ([facility]); Chronic kidney disease, stage 3a ([facility]); Mixed hyperlipidemia ; Essential /13/2025 9:45 AM EDTAncillary Procedure [facility] [address] [facility] [address] [place] [address] 11/18/2024 9:00 AM EDTOffice Visit [facility] [address] [facility] [address] [place] [phone] Corona Orozco, [employer]PERVIS[employer]IES Fall, subsequent encounter (Primary Dx); Rib contusion, right, subsequent encounter; Acute right ankle pain; Right ankle swelling; Right foot pain11/18/2024Results Follow-Up [facility] [address] [place] [phone] Corona Orozco, SUPERVISOR [employer]IES XR ankle 3+ views right11/18/2024Orders Only [facility] [address] [place] [phone] Unallocated, [facility] MD Ghazala 11/18/20241486Veojug66/12/2025Patient Outreach [facility] [address] [place] [address] Daniela Irene RN 11/16/2024Orders Only [facility] [address] [place] [address] Unallocated, [facility] MD Ghazala from Last 3 Months Immunizations ImmunizationAdministration DatesNext DueABRYSVO - Respiratory syncytial virus (RSV), vaccine, bivalent, protein subunit RSV prefusion F, diluent reconstituted, 0.5 mL, PF03/04/2023Influenza, High Dose Seasonal, Preservative Free01/08/2022,12/30/2020Influenza, Seasonal, Quadrivalent, Idpizbnacp21/09/2023 Influenza, injectable, quadrivalent, preservative free12/25/2016Influenza, trivalent, gqhtbqdgun38/07/2025,12/17/2023,12/18/2019,02/25/2019,02/25/2018 Pneumococcal Conjugate PCV 13001/04/2018,11/25/2014,11/24/2014Pneumococcal Polysaccharide RDSC8716Zoster, Xrkltulkxss93/25/2020,08/26/2019, 06/09/2019 Family History Medical HistoryRelationNameCommentsCancerFatherParkinsonismMotherBone cancer SiblingKidney diseaseSiblingabnormal pap smearSiblingRelationNameStatusComments Brother3 brothersDaughterAlive3 daughters, healthyFatherDeceasedMotherDeceased SiblingAliveSister1 sister Social History Tobacco UseTypesPacks/DayYears UsedDateSmoking Tobacco: FormerCigarettes 04/08/1962 - 04/08/1968Passive Smoke Exposure: PastSmokeless Tobacco: Never Tobacco Cessation:Counseling Given: Not Answered Comments:>10 years since last smoked Alcohol UseStandard Drinks/WeekCommentsNot Currently0 (1 standard drink = 0.6 oz pure alcohol)Caffeine intake: 1-2 cups per day coffeeAUDIT-CAnswerDate Recorded Q1: How often do you have a drink containing alcohol?Never11/06/2023Q2: How many drinks containing alcohol do you have on a typical day when you are drinking? Patient does not drink11/06/2023Q3: How often do you have six or more drinks on one occasion?Never11/06/2023HQ-2AnswerDate RecordedPatient Health Questionnaire-2 Qyldb521Sex and Gender InformationValueDate RecordedSex Assigned at BirthNot on fileLegal UkiSakg3706/20/2022 6:50 PM EDTGender Identity Not on fileSexual OrientationNot on file Last Filed Vital Signs Vital SignReadingTime TakenCommentsBlood Agmrqiyw975/6008 9:09 AM EDT Yynsa847201/12/2025 1:45 PM EDTTemperature--Respiratory Rate--Oxygen Hssijxzeui53% 01/12/2025 1:45 PM EDTInhaled Oxygen Concentration--Tsxgce795 kg (222 lb 12.8 oz)01/12/2025 1:45 PM EJUUywqac913.1 cm (5' 5 )01/12/2025 1:45 PM EDTBody Mass Index37.0801/12/2025 1:45 PM EDT Plan of Treatment DateTypeDepartmentCare Team (Latest Contact Info)Kynczpaarth89/06/2025 2:20 PM ESTOffice Visit [facility] [address] [place] [phone] Ana Sharpe MD [address] [place] [address] 07/20/2025 2:00 PM EDTOffice Visit [facility] [address] [place] [address] Health MaintenanceDue DateLast DoneCommentsDiabetes: Retinopathy Screening 1948Diabetes: Hemoglobin A1C/09/2022, 03/12/2022, 03/13/2021, Additional history existsDiabetes: Urine Protein Mvjfzdaeg25, 04/15/2023, 09/11/2022, Additional history existsMedicare Annual Wellness (AWV) Pneumococcal Vaccine: 65+ ElgigOmlribbui23/29/2018, 11/25/2014, 11/24/2014, Additional history existsInfluenza VaccineCompleted 01/12/2025, 12/17/2023, 02/14/2023, Additional history exists Procedures Procedure NamePriorityDate/TimeAssociated DiagnosisCommentsXR FOOT 1-2 VIEWS CCQMLQlwfbnf38/13/2025 9:54 AM EDT Fall, subsequent encounter Acute right ankle pain Right ankle swelling Right foot pain XR ANKLE 3+ VIEWS CWLBWOudzxdv78/13/2025 9:54 AM EDT Fall, subsequent encounter Acute right ankle pain Right ankle swelling XR RIBS 3 VIEWS BILATERAL WITH CHEST EGHDCFBADCMODVKUyktzpe12/08/2025 11:37 AM EDTXR WRIST 1-2 VIEWS OVRLMZwsrjbg59/08/2025 9:32 AM EDTMICROALBUMIN / CREATININE URINE APGLOVjnejya10/19/2025 10:19 AM EDT Essential (primary) hypertension Chronic kidney disease, stage 3a (CMS-HCC) Medication management HEMOGLOBIN A4RDfuwace12/06/2023 8:37 AM EDT from Last 3 Months or Most Recently Relevant to Health Maintenance Results * XR foot 1 or 2 views right (11/18/2024 9:54 AM EDT)Anatomical RegionLaterality ModalityLower Extremities, FootRightRadiographic ImagingSpecimen (Source) Anatomical Location / LateralityCollection Method / VolumeCollection Time Received Time11/18/2024 10:55 AM EDT Impressions 11/18/2024 10:56 AM EDT No fracture. ELECTRONICALLY SIGNED BY: Quincy Vance MD Narrative 11/18/2024 10:56 AM EDT Right foot. HISTORY: Twisted right foot and ankle 5 days ago. Pain, swelling, bruising over top of foot and right ankle area. FINDINGS: Diffuse osteopenia. No fracture, dislocation, bone lesion. Mild spurring plantar surface calcaneus. Procedure Note Quincy Vance MD - 11/18/2024 Right foot. HISTORY: Twisted right foot and ankle 5 days ago. Pain, swelling, bruising over topof foot and right ankle area. FINDINGS: Diffuse osteopenia. No fracture, dislocation, bone lesion. Mild spurring plantar surface calcaneus. IMPRESSION: No fracture. ELECTRONICALLY SIGNED BY: Quincy Vance MD Authorizing ProviderResult TypeResult StatusMicpremier health mi[facility] hospital northmahi Orozco NPIMG XR PROCEDURES Final Result * XR ankle 3+ views right (11/18/2024 9:54 AM EDT)Anatomical RegionLaterality ModalityLower Extremities, AnkleRightRadiographic ImagingSpecimen (Source) Anatomical Location / LateralityCollection Method / VolumeCollection Time Received Time11/18/2024 10:57 AM EDT Impressions 11/18/2024 10:58 AM EDT Soft tissue swelling, right ankle. No fracture. ELECTRONICALLY SIGNED BY: Quincy Vance MD Narrative 11/18/2024 10:58 AM EDT Right ankle. HISTORY: Twisted right foot and ankle 5 days ago. Pain, swelling, bruising generalized over top of foot and diffusely over right ankle area. FINDINGS: Mild soft tissue swelling medial and lateral malleolus. Ankle mortise intact. No fracture, dislocation, bone lesion. Procedure Note Quincy Vance MD - 11/18/2024 Right ankle. HISTORY: Twisted right foot and ankle 5 days ago. Pain, swelling, bruisinggeneralized over top of foot and diffusely over right ankle area. FINDINGS: Mild soft tissue swelling medial and lateral malleolus. Ankle mortiseintact. No fracture, dislocation, bone lesion. IMPRESSION: Soft tissue swelling, right ankle. No fracture. ELECTRONICALLY SIGNED BY: Quincy Vance MD Authorizing ProviderResult TypeResult StatusCorona Orozco NPIMG XR PROCEDURES Final Result * XR ribs 3 views bilateral w chest posteroanterior (11/13/2024 11:37 AM EDT) Anatomical RegionLateralityModalityRib, AbdomenBilateralRadiographic Imaging Narrative Authorizing ProviderResult TypeResult StatusNoms Provider Unallocated MDIMG XR PROCEDURESFinal Result * XR wrist 1 or 2 views right (11/13/2024 9:32 AM EDT)Anatomical Region LateralityModalityUpper Extremities, WristRightRadiographic Imaging Narrative Authorizing ProviderResult TypeResult StatusNoms Provider Unallocated MDIMG XR PROCEDURESFinal Result * Microalbumin / creatinine urine ratio (09/24/2024 10:19 AM EDT)ComponentValue Ref RangeTest MethodAnalysis TimePerformed AtPathologist SignatureCreat Ur89.6 Not Estab. mg/dLLABCORPAlbumin Ur5.1Not Estab. ug/mLLABCORPAlb/Creat Ratio Urine60 - 29 mg/g creatLABCORPComment: ? Normal: ?0 - ??29 ? Moderately increased: 30 - 300 Severely increased: >300 Specimen (Source)Anatomical Location / LateralityCollection Method / Volume Collection TimeReceived TimeUrineUrine specimen obtained by clean catch procedure / Ayopcvs4809/24/2024 10:19 AM EDT09/24/2024 Narrative [facility] - 09/25/2024 10:07 AM EDT Performed at: [address] ??[id number] Hot Dip Plater: Jeferson Fowler PhD, Phone: ??[phone] Authorizing ProviderResult TypeResult StatusEugene Poeman DOLAB URINE ORDERABLESFinal ResultPerforming OrganizationAddressCity/State/ZIP CodePhone Number [facility] * Hemoglobin A1c (09/11/2022 8:37 AM EDT)ComponentValueRef RangeTest Method Analysis TimePerformed AtPathologist SignatureHemoglobin A1C5.3<5.7 % of total HgbQUESTComment: For the purpose of screening for the presence of diabetes: <5.7% Consistent with the absence of diabetes 5.7-6.4% ?Consistent with increased risk for diabetes ?(prediabetes) > or =6.5% Consistent with diabetes This assay result is consistent with a decreased risk of diabetes. Currently, no consensus exists regarding use of hemoglobin A1c for diagnosis of diabetes in children. According to [place] Diabetes Association (ADA) guidelines, hemoglobin A1c <7.0% represents optimal control in non- diabetic patients. Different metrics may apply to specific patient populations. Standards of Medical Care in Diabetes(ADA). Specimen (Source)Anatomical Location / LateralityCollection Method / Volume Collection TimeReceived Time09/11/2022 8:37 AM EDT09/11/2022 3:00 PM EDT Narrative [facility] - 09/12/2022 10:08 AM EDT FASTING:YES FASTING: YES Resulting Agency Comment Performing Organization Information ?Site ID: [id number] ?Name: [employer] [facility] ?Address: [address] [place] [address], [address] [place] [phone] ?Director: Shailesh Khan MD Authorizing ProviderResult TypeResult StatusEugene AHN BLOOD ORDERABLESFinal ResultPerforming OrganizationAddressCity/State/ZIP CodePhone Number [facility] from Last 3 Months or Most Recently Relevant to Health Maintenance Insurance Advance Directives * Full Code (Latest Code Status on File) Date ActivatedDate InactivatedComments04/16/2023 4:14 PM Care Teams Team MemberRelationshipSpecialtyStart DateEnd Date Eugene Devine DO [address] [place] [address] PCP - Devoted04/08/20 Campos Blank MD [address] [place] [address] PCP - GeneralInternal Medicine11/16/24 Arpan Cardoso MD [address] [place] [phone] Referring PhysicianOphthalmology04/16/23
--- NOTE | 2025-02-01 15:53 | CT_ITS ---
The [address] [address] Patient Name: SAMUEL KHALIL MRN: [id number] date: 1940 Sex: M Assigned Patient Location: ER Current Patient Location: ER Accession/Order Number: [id number] Exam Date: 02/01/2025 16:28 Report Date: 02/01/2025 17:37 At the request of: LUISA CARRION Procedure: CT femur RT wo con CT RIGHT FEMUR WITHOUT CONTRAST: CLINICAL HISTORY: Injury, bruise right medial thigh COMPARISON: None TECHNIQUE: Contiguous axial unenhanced images were obtained right femur. This CT exam was performed using one or more following dose reduction techniques: Automated exposure control, adjustment of the mA and/or kV according to patient size, or use of iterative reconstruction technique. FINDINGS: Minimal intramuscular hemorrhage involving hamstring musculature, Likely due to strain type injury.. Otherwise no fracture or dislocation identified. Mild degenerative changes. CT/CT femur RT wo con IMPRESSION: Increase density within the hamstring musculature suggestive of strain type injury/contusion. Recommend clinical follow-up to resolution. Impression dictated by: Ozzie Pino M.D. 02/01/2025 5:37 PM Dictation Location: [place] [address] Electronically authenticated by: [id number] Y Date: 02/01/2025 17:37
--- NOTE | 2025-02-01 15:54 | ED_ITS ---
HPI - Extremity Problem General Chief complaint: Extremity Problem, Nontraumatic Stated complaint: BRUISE ON R LEG Time Seen by Provider: 02/01/25 15:50 Source: patient Mode of arrival: walk-in Limitations: no limitations History of Present Illness HPI Narrative: 84 year old male presents to the ED for bruising to his right leg. It was noticed this morning. Denies injury. States it started on the upper leg and is now noted on the lower leg. He is on coumadin. Denies fever, chills, weakness, N/T. Denies CP, SOB, dizziness. Denies pain to the area. Related Data Allergies Allergy/AdvReac Type Severity Reaction Status Date / Time No Known Drug Allergies Allergy Verified 11/13/24 15:22 Review of Systems ROS Constitutional Denies: fever or chills Cardiovascular Denies: chest pain or lightheadedness Respiratory Denies: shortness of breath Musculoskeletal Denies: extremity pain Integumentary/Breast Reports: other (Bruising right leg) Neurological Denies: numbness in extremities, weakness in extremities or dizziness PFSH PFSH Social History Little interest or pleasure in doing things: not at all Feeling down, depressed, or hopeless: not at all Exam Constitutional Vital Signs, click to edit/add: Last Vital Signs Temp 99.0 F 02/01/25 15:43 Pulse 71 02/01/25 17:35 Resp 18 02/01/25 17:35 BP 135/74 02/01/25 17:35 Pulse Ox 98 02/01/25 17:35 O2 Del Method Room Air 02/01/25 15:43 Common normals: no apparent distress and oriented x3 General appearance: cooperative HENNE Common normals: moist oral mucous membranes Eye Common normals: conjunctivae normal and no scleral icterus Neck & C-Spine Common normals: supple Chest Chest: symmetrical chest wall rise Respiratory Common normals: normal respiratory effort Effort & inspection: able to speak in complete sentences and symmetric chest movement Cardio Common normals: regular rate Peripheral pulses: posterior tibial pulses present and dorsalis pedis pulses present Extremity Other: Hematoma noted to right upper medial leg. Extends to posterior knee and proximal calf. Nontender. No open wounds noted. Denies calf tenderness. Neuro Common normals: oriented x3 and moves all extremities Sensorium/orientation: awake and alert Speech: speech normal Course Vital Signs Vital signs: Vital Signs Temperature 99.0 F 02/01/25 15:43 Pulse Rate 63 02/01/25 15:43 Respiratory Rate 18 02/01/25 15:43 Blood Pressure 132/77 02/01/25 15:43 Pulse Oximetry 98 02/01/25 15:43 Oxygen Delivery Method Room Air 02/01/25 15:43 Temperature 99.0 F 02/01/25 15:43 Pulse Rate 71 02/01/25 17:35 Respiratory Rate 18 02/01/25 17:35 Blood Pressure 135/74 02/01/25 17:35 Pulse Oximetry 98 02/01/25 17:35 Oxygen Delivery Method Room Air 02/01/25 15:43 MDM - Extremity (Nontraumatic) MDM Narrative Medical decision making narrative: INR was 1.87. CT scan showed increase density within the hamstring musculature suggestive of strain type injury/contusion. Findings were discussed with the patient. The patient was anxious to be discharged. Follow up with pcp for a recheck, further evaluation and treatment. Return precautions were discussed. He was accompanied by family for a ride home. Medical Records Attestation: I reviewed the patient's medical records. Lab Data Attestation: I reviewed the patient's lab results. Labs: Lab Results 02/01/25 Range/Units 16:04 WBC 8.6 (4.0-11.0) 10^3/uL RBC 4.84 (4.70-6.10) 10^6/uL Hgb 15.1 (14.0-18.0) g/dL Hct 44.3 (42.0-54.0) % MCV 91.5 (80.0-94.0) fL MCH 31.2 (25.9-34.0) pg MCHC 34.1 (29.9-35.2) g/dL RDW 13.5 (11.0-15.0) % Plt Count 230 (150-450) 10^3/uL MPV 10.1 (9.5-13.5) fL Neut % (Auto) 66.8 (43.0-75.0) % Lymph % (Auto) 20.8 (20.5-60.0) % [place] % (Auto) 8.2 (1.7-12.0) % Eos % (Auto) 3.1 (0.9-7.0) % Baso % (Auto) 0.8 (0.2-2.0) % Neut # (Auto) 5.8 (1.4-6.5) 10^3/uL Lymph # (Auto) 1.8 (1.2-3.8) 10^3/uL [place] # (Auto) 0.7 (0.3-0.8) 10^3/uL Eos # (Auto) 0.3 (0.0-0.7) 10^3/uL Baso # (Auto) 0.1 (0.0-0.1) 10^3/uL Abs Immat Gran (auto) 0.03 (0.00-0.03) 10^3/uL Imm/Tot Granulo (auto) 0.3 (0.0-0.5) % PT 18.6 H (9.0-11.6) sec INR 1.87 Sodium 141 (136-145) mmol/L Potassium 3.5 (3.5-5.1) mmol/L Chloride 100 (98-107) mmol/L Carbon Dioxide 31.7 (21.0-32.0) mmol/L Anion Gap 12.8 BUN 21.0 H (7.0-18.0) mg/dL Creatinine 1.42 H (0.70-1.30) mg/dL Est GFR ( Amer) 57 L (>=60 mL/min/1.73m^2) Est GFR (Non-Af Amer) 47 L (>=60 mL/min/1.73m^2) BUN/Creatinine Ratio 14.8 Glucose 110 H (74-106) mg/dL Calcium 9.1 (8.5-10.1) mg/dL Imaging Data CT: Attestation: I have reviewed the pertinent imaging results. Radiologist's impression: ITS Impressions Femur CT 02/01/25 15:53 IMPRESSION: Increase density within the hamstring musculature suggestive of strain type injury/contusion. Recommend clinical follow-up to resolution. Impression dictated by: Ozzie Pino M.D. 02/01/2025 5:37 PM Dictation Location: [place] [address] Electronically authenticated by: [id number] Y Date: 02/01/2025 17:37 Discharge Plan Discharge Chief Complaint: Extremity Problem, Nontraumatic Clinical Impression: Leg hematoma Patient Disposition: Home, Self-Care Time of Disposition Decision: 17:57 Condition: Good Mode of Transportation: Private Vehicle Print Language: Italian Instructions: Contusion in Adults (ED), Hematoma (ED) Additional Instructions: Return to the ED for worsening symptoms. Referrals: ALVARO TANNER [Primary Care Provider, Family Practice] - 1 week Discharge Date/Time: 02/01/25 18:04
[2025-02-01 16:10] LABS: Hematocrit 44.3 % (42.0-54.0); Hemoglobin 15.1 g/dL (14.0-18.0); Immature Granulocytes Abs Auto 0.03 10^3/uL (0.00-0.03); Immature Granulocytes Pct Auto 0.3 % (0.0-0.5); Lymphocytes Absolute Auto 1.8 10^3/uL (1.2-3.8); Mean Corpuscular HGB Conc 34.1 g/dL (29.9-35.2); Mean Corpuscular Hemoglobin 31.2 pg (25.9-34.0); Mean Corpuscular Volume 91.5 fL (80.0-94.0); Platelet Count 230 10^3/uL (150-450); Red Blood Count 4.84 10^6/uL (4.70-6.10); White Blood Count 8.6 10^3/uL (4.0-11.0)
[2025-02-01 16:19] LABS: Anion Gap 12.8; Blood Urea Nitrogen 21.0 mg/dL (7.0-18.0); Calcium 9.1 mg/dL (8.5-10.1); Carbon Dioxide 31.7 mmol/L (21.0-32.0); Chloride 100 mmol/L (98-107); Estimated GFR (African America 57 (>=60 mL/min/1.73m^2); Estimated GFR (Non-African Ame 47 (>=60 mL/min/1.73m^2); Glucose 110 mg/dL (74-106); Potassium 3.5 mmol/L (3.5-5.1); Sodium 141 mmol/L (136-145)
[2025-02-01 16:24] LABS: INR 1.87; Prothrombin Time 18.6 sec (9.0-11.6)
[2025-02-01 17:35] VITALS: BP 135/74; PULSE 71; O2SAT 98
== END 2025-02-01 18:04 | disposition home or self-care (01) ==
PROVIDERS: Nurse Practitioner Family; Emergency Provider Emergency Medicine; PCP Internal Medicine
DX: S80.11XA Contusion of right lower leg, initial encounter (principal); Z79.01 Long term (current) use of anticoagulants
CPT/HCPCS: 36415; 73700; 76376; 80048; 85025; 85610; 99285

== ENCOUNTER 2025-02-06 | Outpatient (RCR) | payer OTHER, SELFPAY | END 2025-03-07 23:59 | disposition home or self-care (01) | LOC: MM | PROVIDERS: PCP Internal Medicine; Visit Provider Internal Medicine | DX: Z51.81 Encounter for therapeutic drug level monitoring (principal); Z79.01 Long term (current) use of anticoagulants ==

== ENCOUNTER 2025-03-08 11:36 | Outpatient (RCR) | payer OTHER, SELFPAY | END 2025-04-07 13:04 | disposition home or self-care (01) | LOC: MM 11:36 | PROVIDERS: PCP Internal Medicine; Visit Provider Internal Medicine | DX: Z51.81 Encounter for therapeutic drug level monitoring (principal); Z79.01 Long term (current) use of anticoagulants; I48.0 Paroxysmal atrial fibrillation | CPT/HCPCS: 85610; G0463 ==